=== PATIENT | female | born 1950 | race Caucasian/White ===

== ENCOUNTER 2018-12-12 07:41 | Inpatient (IN) ==
[2018-12-12] MEDS ORDERED: 0.9 % Sodium Chloride 1,000 ML ONE (07:56)
--- NOTE | 2018-12-12 08:12 | Emergency Department Note ---
Disposition Clinical Impression: Weakness Anemia Qualifiers: Anemia type: unspecified type Qualified Code(s): D64.9 - Anemia, unspecified Sepsis Qualifiers: Sepsis type: sepsis due to unspecified organism Qualified Code(s): A41.9 - Sepsis, unspecified organism Pneumonia Qualifiers: Pneumonia type: due to unspecified organism Laterality: unspecified laterality Lung location: unspecified part of lung Qualified Code(s): J18.9 - Pneumonia, unspecified organism Disposition: Admitted As Inpatient Condition: Fair Time of Disposition: 08:39 Weakness HPI - General Chief complaint: ED Weakness Stated complaint: General weakness, Flu A + Time Seen by Provider: 12/12/18 07:57 Source: patient, EMS Limitations: no limitations Nursing Notes Reviewed: Yes Vital Signs Reviewed: Yes - History of Present Illness HPI Narrative: 68-year-old female presents from home for evaluation of generalized weakness. This began 4 days ago and has progressively worsened. no falls. She was diagnosed with the flu yesterday. given azithromycin. Her daily 10mg prednisone was increased to 20mg PO Qday. She has been on prednisone "for a long time". She has a feeling of warmth, chills, loose stools, and a dry cough. PMH: per nursing update on chart ROS Pos: as above Neg: nausea, vomiting, chest pain, palpitations, dyspnea, abdominal pain. Pain Scale: 5 - Related Data Home Medications Medication Instructions Recorded Confirmed Alendronate Sodium [Fosamax] 70 mg PO SA 12/12/18 12/12/18 Benzonatate [Tessalon] 100 mg PO HS 12/12/18 12/12/18 Calcium Carbonate/Vitamin D3 1 tab PO DAILY 12/12/18 12/12/18 [Calcium 600 + Vit D Tablet] Carvedilol 12.5 mg PO BID 12/12/18 12/12/18 Fexofenadine/Pseudoephedrine 180 mg PO DAILY 12/12/18 12/12/18 [Radha-D 12 Hour Tablet] Furosemide [Lasix] 40 mg PO BID 12/12/18 12/12/18 Gabapentin 600 mg PO HS 12/12/18 12/12/18 Gabapentin [Neurontin] 100 mg PO DAILY 12/12/18 12/12/18 Multivit-Min/FA/Lycopen/Lutein 1 tab PO DAILY 12/12/18 12/12/18 [Centrum Silver Tablet] Mycophenolate Mofetil [Cellcept] 500 mg PO BID 12/12/18 12/12/18 Omeprazole [PriLOSEC] 40 mg PO BID 12/12/18 12/12/18 Ondansetron HCl [Zofran] 4 mg PO Q8H PRN 12/12/18 12/12/18 Potassium Chloride [K-Tab ER] 20 meq PO HS 12/12/18 12/12/18 Spironolactone [Aldactone] 100 mg PO DAILY 12/12/18 12/12/18 Vitamin E 400 unit PO DAILY 12/12/18 12/12/18 Warfarin [Coumadin] 2.5 mg PO QPM 12/12/18 12/12/18 metFORMIN [Glucophage] 500 mg PO BIDWM 12/12/18 12/12/18 predniSONE [PredniSONE] 10 mg PO DAILY 12/12/18 12/12/18 Allergies Allergy/AdvReac Type Severity Reaction Status Date / Time No Known Allergies Allergy Verified 12/12/18 07:49 All systems ED: reviewed and negative except as stated. Review of Systems: As Per HPI Past Medical History - Past Medical History Medical history: Reports: CHF, diabetes, GERD, other Psychiatric history: Reports: no psych history - Social History Smoking Status: Never smoker Smokeless Tobacco Status: No Alcohol use: Reports: none Drug use: Reports: none Physical Exam Vital Signs Reviewed General: Patient is alert, oriented, and in no acute distress. She appears tired Head: atraumatic, normocephalic Eye: normal appearance, PERRL, EOMI, no scleral icterus, no conjunctival injection ENT: mucous membranes dry, normal external ear exam Neck: normal inspection, trachea midline, full ROM Chest: normal inspection, symmetric chest rise Respiratory: Good respiratory effort. Bilateral breath sounds are diminished with faint crackles. No wheeze or rhonchi. Cardiovascular: Regular rate and rhythm. No clicks, rubs, gallops, or murmors. Normal heart sounds. BL radial pulses 2/4 and equal. Abdomen: Bowel sounds present normoactive. Abdomen is soft, nondistended, and n ontender. No guarding or rebound. No organomegaly noted. Musculoskeletal: Spontaneously moving all extremities. Skin: warm, dry, intact. Neuro: GCS 15. No focal neurologic deficits observed. Psych: Patient's affect is appropriate for situation. - General Limitations: no limitations General appearance: alert, in no apparent distress Course Course Narrative: SIRS (+) by temp and HR. Sepsis workup. 1L IVF at this time; SBP high 80's. Cautious fluid replenishment secondary to history of CHF. CXR unremarkable for acute findings per radiology read. XR hip secondary to hip pain unremarkable per radiology read. 11:00 Re-evaluating the patient. SBP in low 70's. Patient awake, alert, mentating appropriately. First 1L NS of nearly complete. I mixed push dose epi solution of 0.01mg epi per 1mL solution. Gave 0.01mg epinephrine slow peripheral push. BP improved to 108 systolic. Written consent for CVC. SBP dwindled back to low 70's. A second dose of 0.01mg epi slow peripheral push just prior to starting CVC procedure. Right IJ CVC placed. Norepinephrine drip titrate to MAP 60+. Empiric vancomycin and zosyn. 125 solumedrol as stress dose steroids. Total 2L IVF NS bolus. 11:31 Rapid flu pending; nursing notified. Tamiflu empirocally given as patient stated Flu A positive yesterday however no documentation in our chart/system. I discussed the above with the talent acquisition relationship manager, Dr. Wang. He agrees to accept the patient for continued evaluation monitoring within the ICU. Chest X-Ray 12/12/18 08:08 IMPRESSION: Bilateral perihilar infiltrates are likely chronic when correlated to a brazing machine tender 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 No acute osseous injury of the left hip. D/ / 12/12/2018 09:18:08 Guillaume Bates MD / anthony Interpreting Provider: Guillaume Bates MD Hip X-Ray 12/12/18 08:09 IMPRESSION: Bilateral perihilar infiltrates are likely chronic when correlated to a brazing machine tender 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 No acute osseous injury of the left hip. D/ / 12/12/2018 09:18:08 Guillaume Bates MD / anthony Interpreting Provider: Guillaume Bates MD Vital Signs Temperature 101.5 F H 12/12/18 07:49 Pulse Rate 118 12/12/18 07:49 Respiratory Rate 15 12/12/18 07:49 Blood Pressure 87/48 12/12/18 07:49 O2 Sat by Pulse Oximetry 96 12/12/18 07:49 Temperature 99.3 F 12/12/18 15:56 Pulse Rate 90 12/12/18 18:00 Respiratory Rate 21 12/12/18 18:00 Blood Pressure 105/64 12/12/18 18:00 O2 Sat by Pulse Oximetry 94 12/12/18 18:00 Oxygen Delivery Oxygen Delivery Nasal Cannula Weakness - Lab Data Result diagrams: 12/12/18 08:36 12/12/18 17:43 Lab Results 12/12/18 12/12/18 12/12/18 Range/Units 08:01 08:27 08:36 WBC 9.8 (4.3-11.1) K/mcL RBC 4.11 (3.82-4.97) M/mcL Hgb 10.5 L (11.5-15.4) g/dL Hct 33.3 L (35.3-44.9) % MCV 81.0 L (83.0-100.0) fL MCH 25.5 L (28.0-33.3) pg MCHC 31.5 L (31.6-35.5) g/dL RDW 15.7 H (11.5-14.5) % Plt Count 273 (140-400) K/mcL MPV 10.1 (9.4-12.4) fL Immature Gran % 1.5 (0-4) % Seg Neutrophils % 83.5 % Lymphocytes % 4.5 % Monocytes % 9.5 % Eosinophils % 0.4 % Basophils % 0.6 % Neutrophils # 8.2 (1.6-8.9) K/mcL Lymphocytes # 0.4 L (0.6-4.6) K/mcL Monocytes # 0.9 (0.0-1.3) K/mcL Eosinophils # 0.0 (0.0-0.6) K/mcL Basophils # 0.1 (0.0-0.2) K/mcL PT (9.4-12.1) Seconds INR APTT (26.0-36.0) Seconds Sodium (136-145) mEq/L Potassium (3.5-5.1) mEq/L Chloride (98-107) mEq/L Carbon Dioxide (23-29) mEq/L BUN (8-23) mg/dL Creatinine (0.60-1.20) mg/dL Est GFR ( Amer) (> 60) Est GFR (Non-Af Amer) (> 60) BUN/Creatinine Ratio (6-26) Glucose (70-105) mg/dL POC Glucose 149 H (70-99) mg/dL Calculated Osmolality (280-300) Lactic Acid 3.9 H (0.5-2.2) mmol/L Calcium (8.6-10.3) mg/dL Phosphorus (2.7-4.5) mg/dL Magnesium (1.6-2.6) mg/dL Total Bilirubin (0.3-1.0) mg/dL Direct Bilirubin (0.0-0.2) mg/dL Indirect Bilirubin (0.0-1.2) mg/dL AST (13-39) Units/L ALT (7-52) Units/L Alkaline Phosphatase (34-104) Units/L Troponin I (< 0.04) ng/mL B-Natriuretic Peptide (Less than 100) pg/mL Serum Total Protein (6.4-8.9) g/dL Albumin (3.5-5.7) g/dL Globulin (2.4-3.5) g/dL Albumin/Globulin Ratio (1.1-2.2) Random Cortisol mcg/dl Urine Color (Yellow) Urine Clarity (Clear) Urine pH (5.0-8.0) pH Units Ur Specific Haskell (1.010-1.025) Urine Protein (Neg-Trace) mg/dL Urine Glucose (UA) (Normal) mg/dL Urine Ketones (Negative) mg/dL Urine Blood (Negative) Urine Nitrite (Negative) Urine Bilirubin (Negative) Urine Urobilinogen (Normal) mg/dL Ur Leukocyte Esterase (Negative) Urine Microscopic RBC (0-3) per hpf Urine Microscopic WBC (0-3) per hpf Ur Squamous Epith Cells (None-Few) per lpf Urine Bacteria (None-Few) per hpf Hyaline Casts (None-Few) per lpf Ur Culture Indicated? (NO) 12/12/18 12/12/18 12/12/18 Range/Units 08:36 08:36 08:36 WBC (4.3-11.1) K/mcL RBC (3.82-4.97) M/mcL Hgb (11.5-15.4) g/dL Hct (35.3-44.9) % MCV (83.0-100.0) fL MCH (28.0-33.3) pg MCHC (31.6-35.5) g/dL RDW (11.5-14.5) % Plt Count (140-400) K/mcL MPV (9.4-12.4) fL Immature Gran % (0-4) % Seg Neutrophils % % Lymphocytes % % Monocytes % % Eosinophils % % Basophils % % Neutrophils # (1.6-8.9) K/mcL Lymphocytes # (0.6-4.6) K/mcL Monocytes # (0.0-1.3) K/mcL Eosinophils # (0.0-0.6) K/mcL Basophils # (0.0-0.2) K/mcL PT 31.4 H (9.4-12.1) Seconds INR 2.8 APTT 40.1 H (26.0-36.0) Seconds Sodium 129 L (136-145) mEq/L Potassium 4.1 (3.5-5.1) mEq/L Chloride 96 L (98-107) mEq/L Carbon Dioxide 23 (23-29) mEq/L BUN 14 (8-23) mg/dL Creatinine 1.17 (0.60-1.20) mg/dL Est GFR ( Amer) 56 L (> 60) Est GFR (Non-Af Amer) 46 L (> 60) BUN/Creatinine Ratio 12 (6-26) Glucose 121 H (70-105) mg/dL POC Glucose (70-99) mg/dL Calculated Osmolality 270 L (280-300) Lactic Acid (0.5-2.2) mmol/L Calcium 8.0 L (8.6-10.3) mg/dL Phosphorus 3.4 (2.7-4.5) mg/dL Magnesium 1.4 L (1.6-2.6) mg/dL Total Bilirubin 0.3 (0.3-1.0) mg/dL Direct Bilirubin 0.1 (0.0-0.2) mg/dL Indirect Bilirubin 0.2 (0.0-1.2) mg/dL AST 18 (13-39) Units/L ALT 8 (7-52) Units/L Alkaline Phosphatase 40 (34-104) Units/L Troponin I < 0.03 (< 0.04) ng/mL B-Natriuretic Peptide 106 H (Less than 100) pg/mL Serum Total Protein 6.2 L (6.4-8.9) g/dL Albumin 3.2 L (3.5-5.7) g/dL Globulin 3.0 (2.4-3.5) g/dL Albumin/Globulin Ratio 1.1 (1.1-2.2) Random Cortisol mcg/dl Urine Color (Yellow) Urine Clarity (Clear) Urine pH (5.0-8.0) pH Units Ur Specific Haskell (1.010-1.025) Urine Protein (Neg-Trace) mg/dL Urine Glucose (UA) (Normal) mg/dL Urine Ketones (Negative) mg/dL Urine Blood (Negative) Urine Nitrite (Negative) Urine Bilirubin (Negative) Urine Urobilinogen (Normal) mg/dL Ur Leukocyte Esterase (Negative) Urine Microscopic RBC (0-3) per hpf Urine Microscopic WBC (0-3) per hpf Ur Squamous Epith Cells (None-Few) per lpf Urine Bacteria (None-Few) per hpf Hyaline Casts (None-Few) per lpf Ur Culture Indicated? (NO) 12/12/18 12/12/18 12/12/18 Range/Units 12:06 12:06 14:21 WBC (4.3-11.1) K/mcL RBC (3.82-4.97) M/mcL Hgb (11.5-15.4) g/dL Hct (35.3-44.9) % MCV (83.0-100.0) fL MCH (28.0-33.3) pg MCHC (31.6-35.5) g/dL RDW (11.5-14.5) % Plt Count (140-400) K/mcL MPV (9.4-12.4) fL Immature Gran % (0-4) % Seg Neutrophils % % Lymphocytes % % Monocytes % % Eosinophils % % Basophils % % Neutrophils # (1.6-8.9) K/mcL Lymphocytes # (0.6-4.6) K/mcL Monocytes # (0.0-1.3) K/mcL Eosinophils # (0.0-0.6) K/mcL Basophils # (0.0-0.2) K/mcL PT (9.4-12.1) Seconds INR APTT (26.0-36.0) Seconds Sodium (136-145) mEq/L Potassium (3.5-5.1) mEq/L Chloride (98-107) mEq/L Carbon Dioxide (23-29) mEq/L BUN (8-23) mg/dL Creatinine (0.60-1.20) mg/dL Est GFR ( Amer) (> 60) Est GFR (Non-Af Amer) (> 60) BUN/Creatinine Ratio (6-26) Glucose (70-105) mg/dL POC Glucose (70-99) mg/dL Calculated Osmolality (280-300) Lactic Acid 1.0 (0.5-2.2) mmol/L Calcium (8.6-10.3) mg/dL Phosphorus (2.7-4.5) mg/dL Magnesium (1.6-2.6) mg/dL Total Bilirubin (0.3-1.0) mg/dL Direct Bilirubin (0.0-0.2) mg/dL Indirect Bilirubin (0.0-1.2) mg/dL AST (13-39) Units/L ALT (7-52) Units/L Alkaline Phosphatase (34-104) Units/L Troponin I (< 0.04) ng/mL B-Natriuretic Peptide (Less than 100) pg/mL Serum Total Protein (6.4-8.9) g/dL Albumin (3.5-5.7) g/dL Globulin (2.4-3.5) g/dL Albumin/Globulin Ratio (1.1-2.2) Random Cortisol 12.2 mcg/dl Urine Color Yellow (Yellow) Urine Clarity Clear (Clear) Urine pH 6.0 (5.0-8.0) pH Units Ur Specific Haskell 1.011 (1.010-1.025) Urine Protein Negative (Neg-Trace) mg/dL Urine Glucose (UA) Normal (Normal) mg/dL Urine Ketones Negative (Negative) mg/dL Urine Blood Negative (Negative) Urine Nitrite Negative (Negative) Urine Bilirubin Negative (Negative) Urine Urobilinogen Normal (Normal) mg/dL Ur Leukocyte Esterase Small H (Negative) Urine Microscopic RBC 0-3 (0-3) per hpf Urine Microscopic WBC 0-3 (0-3) per hpf Ur Squamous Epith Cells Few (None-Few) per lpf Urine Bacteria None Seen (None-Few) per hpf Hyaline Casts None Seen (None-Few) per lpf Ur Culture Indicated? YES A (NO) 12/12/18 12/12/18 Range/Units 16:15 17:43 WBC (4.3-11.1) K/mcL RBC (3.82-4.97) M/mcL Hgb (11.5-15.4) g/dL Hct (35.3-44.9) % MCV (83.0-100.0) fL MCH (28.0-33.3) pg MCHC (31.6-35.5) g/dL RDW (11.5-14.5) % Plt Count (140-400) K/mcL MPV (9.4-12.4) fL Immature Gran % (0-4) % Seg Neutrophils % % Lymphocytes % % Monocytes % % Eosinophils % % Basophils % % Neutrophils # (1.6-8.9) K/mcL Lymphocytes # (0.6-4.6) K/mcL Monocytes # (0.0-1.3) K/mcL Eosinophils # (0.0-0.6) K/mcL Basophils # (0.0-0.2) K/mcL PT (9.4-12.1) Seconds INR APTT (26.0-36.0) Seconds Sodium 132 L (136-145) mEq/L Potassium 3.7 (3.5-5.1) mEq/L Chloride 102 (98-107) mEq/L Carbon Dioxide 23 (23-29) mEq/L BUN 13 (8-23) mg/dL Creatinine 1.03 (0.60-1.20) mg/dL Est GFR ( Amer) > 60 (> 60) Est GFR (Non-Af Amer) 53 L (> 60) BUN/Creatinine Ratio 13 (6-26) Glucose 228 H (70-105) mg/dL POC Glucose 168 H (70-99) mg/dL Calculated Osmolality 281 (280-300) Lactic Acid (0.5-2.2) mmol/L Calcium 6.9 L (8.6-10.3) mg/dL Phosphorus (2.7-4.5) mg/dL Magnesium (1.6-2.6) mg/dL Total Bilirubin 0.2 L (0.3-1.0) mg/dL Direct Bilirubin (0.0-0.2) mg/dL Indirect Bilirubin (0.0-1.2) mg/dL AST 32 (13-39) Units/L ALT 13 (7-52) Units/L Alkaline Phosphatase 34 (34-104) Units/L Troponin I (< 0.04) ng/mL B-Natriuretic Peptide (Less than 100) pg/mL Serum Total Protein 5.4 L (6.4-8.9) g/dL Albumin 2.7 L (3.5-5.7) g/dL Globulin 2.7 (2.4-3.5) g/dL Albumin/Globulin Ratio 1.0 L (1.1-2.2) Random Cortisol mcg/dl Urine Color (Yellow) Urine Clarity (Clear) Urine pH (5.0-8.0) pH Units Ur Specific Haskell (1.010-1.025) Urine Protein (Neg-Trace) mg/dL Urine Glucose (UA) (Normal) mg/dL Urine Ketones (Negative) mg/dL Urine Blood (Negative) Urine Nitrite (Negative) Urine Bilirubin (Negative) Urine Urobilinogen (Normal) mg/dL Ur Leukocyte Esterase (Negative) Urine Microscopic RBC (0-3) per hpf Urine Microscopic WBC (0-3) per hpf Ur Squamous Epith Cells (None-Few) per lpf Urine Bacteria (None-Few) per hpf Hyaline Casts (None-Few) per lpf Ur Culture Indicated? (NO) Attestation Statement - Attestation Attestation: I, Akin Sherwood, examined this patient and my medical decision-making was reviewed with the LABORATORY DIRECTOR/PA/Advanced Practice Nurse/Resident Physician. I agree with the d ocumented findings, disposition and treatment plan as described except to the extent set forth below. 68-year-old female brought to the emergency department for further evaluation of weakness and fatigue. Patient states she had been diagnosed with influenza within the past few days. She states that she was started on azithromycin and prednisone by her primary care provider. Patient is febrile in the emergency department. She is hypotensive and tachycardic. She is given IV fluids for management of her blood pressure. She does have a history of congestive heart failure so we had to be careful with her resuscitation. Patient received a central line after discussion of risks and benefits and verbal and written consent obtained. I was present for the entire procedure. He was placed by the resident without complication. She was started on pressors. Patient will be admitted to the talent acquisition relationship manager for further care and evaluation
[2018-12-12] MEDS ORDERED: methylPREDNISolone 125 MG/2 ML VIAL IVP ONE (08:14)
[2018-12-12] MEDS ORDERED: 0.9 % Sodium Chloride 1,000 ML IVC ONE ×2 (08:28→10:38)
[2018-12-12 08:47] LABS: Basophils # 0.1 K/mcL (0.0-0.2); Basophils % 0.6 %; Eosinophils % 0.4 %; Hematocrit 33.3 % (35.3-44.9); Hemoglobin 10.5 g/dL (11.5-15.4); Immature Granulocytes % 1.5 % (0-4); Lymphocytes # 0.4 K/mcL (0.6-4.6); Lymphocytes % 4.5 %; Mean Corpuscular HGB Conc 31.5 g/dL (31.6-35.5); Mean Corpuscular Hemoglobin 25.5 pg (28.0-33.3); Mean Platelet Volume 10.1 fL (9.4-12.4); Monocytes # 0.9 K/mcL (0.0-1.3); Monocytes % 9.5 %; Neutrophils # 8.2 K/mcL (1.6-8.9); Platelet Count 273 K/mcL (140-400); Red Blood Count 4.11 M/mcL (3.82-4.97); Red Cell Distribution Width 15.7 % (11.5-14.5); Segmented Neutrophils % 83.5 %
[2018-12-12 08:55] LABS: INR 2.8; Prothrombin Time 31.4 Seconds (9.4-12.1)
[2018-12-12 08:58] LABS: Activated Partial Thrombo Time 40.1 Seconds (26.0-36.0)
[2018-12-12 09:04] LABS: Troponin I < 0.03 ng/mL (< 0.04)
[2018-12-12 09:05] LABS: Alanine Aminotransferase 8 Units/L (7-52); Albumin 3.2 g/dL (3.5-5.7); Albumin/Globulin Ratio 1.1 (1.1-2.2); Alkaline Phosphatase 40 Units/L (34-104); Aspartate Amino Transferase 18 Units/L (13-39); BUN/Creatinine Ratio 12 (6-26); Bilirubin,Direct 0.1 mg/dL (0.0-0.2); Bilirubin,Indirect 0.2 mg/dL (0.0-1.2); Bilirubin,Total 0.3 mg/dL (0.3-1.0); Blood Urea Nitrogen 14 mg/dL (8-23); Carbon Dioxide 23 mEq/L (23-29); Chloride 96 mEq/L (98-107); Glucose 121 mg/dL (70-105); Magnesium 1.4 mg/dL (1.6-2.6); Osmolality,Calculated 270 (280-300); Phosphorous 3.4 mg/dL (2.7-4.5); Potassium 4.1 mEq/L (3.5-5.1); Sodium 129 mEq/L (136-145); Total Protein 6.2 g/dL (6.4-8.9); eGFR For Non-African Americans 46 (> 60)
[2018-12-12] MEDS ORDERED: *HR* EPINEPHrine 1 MG/10 ML SYRINGE ONE (10:39)
[2018-12-12] MEDS ORDERED: Vancomycin 1,000 MG in D5% in Water 250 ML IVPB ONE (10:43)
[2018-12-12] MEDS ORDERED: Piperacillin/Tazobactam 3.375 GM in 0.9 % Sodium Chloride Mini Bag 100 ML IVPB ONE (10:43)
[2018-12-12] MEDS: Norepinephrine 4 MG in D5% in Water 250 ML IVC SCH ×2 (11:28→23:47)
[2018-12-12] MEDS ORDERED: Doxycycline 100 MG in 0.9 % Sodium Chloride Mini Bag 100 ML IVPB ONE (11:51)
[2018-12-12] MEDS ORDERED: 0.9 % Sodium Chloride 500 ML IVC ONE (11:52)
[2018-12-12 14:38] LABS: Bilirubin,Urine Negative (Negative); Blood,Urine Negative (Negative); Clarity,Urine Clear (Clear); Color,Urine Yellow (Yellow); Glucose,Urine (UA) Normal (Normal); Ketones,Urine Negative (Negative); Leukocyte Esterase,Urine Small (Negative); Nitrite,Urine Negative (Negative); Protein,Urine Negative (Neg-Trace); Specific Gravity,Urine 1.011 (1.010-1.025); Urobilinogen,Urine Normal (Normal)
[2018-12-12 14:42] LABS: Bacteria,Urine None Seen per hpf (None-Few); Hyaline Casts,Urine None Seen per lpf (None-Few); RBC,Urine 0-3 per hpf (0-3); Squamous Epithelial Cell,Urine Few per lpf (None-Few); WBC,Urine 0-3 per hpf (0-3)
--- NOTE | 2018-12-12 16:49 | Pulmonology Consult Note ---
<Obdulio Marin - Last Filed: 12/12/18 17:51> Date of Encounter: 12/12/18 Time of Encounter: 16:49 Assessment and Plan (1) Septic shock Current Visit: Yes Status: Acute This is a 68-year-old female with past medical history significant for CHF, diabetes mellitus, GERD, BOOP who initially presented to the ED for evaluation of generalized weakness. - Recently diagnosed with Influenza A - Woke up this AM and felt profoundly weak; fell two times - denies head trauma - On presentation in ED, + SIRS: T = 101.5, HR = 118, BP = 87/48 - Blood cultures, urine culture collected; total of 3.5 L IVF given - Pt continued to have low BPs; Right IJ central line placed - started on Levophed - Given doses of vanc, zosyn, Tamiflu doxycycline in ED - Random Cortisol = 12.2 PLAN: Patient presents with fever, hypotension, tachycardia recent diagnosis of influenza. Positive SIRS criteria, and meets criteria for septic shock. Rapid flu positive for influenza A, and UA suggestive of possible UTI. Patient received 2.5 L of IV fluids. Right IJ in place, and Levophed running. Given low normal random cortisol, may be component of adrenal insufficiency - Continue to monitor vitals; titrate to keep map greater than 65; wean the Levophed as tolerated - Monitor fevers and monitor for white count - Continue Tamiflu 75 mg twice a day - Continue Vanc/Zosyn for now - We will start hydrocortisone 50 mg by mouth every 6 hours - Continue supplemental oxygen as needed - BiPAP at night - Follow up blood cultures, urine cultures, sputum culture; adjust antibiotics as necessary (2) Influenza A Current Visit: Yes Status: Acute Plan as above - Rapid flu positive for influenza A - Continue Tamiflu 75 mg twice a day (3) Lupus anticoagulant disorder Current Visit: Yes Status: Acute PLAN: - Continue Coumadin; per pharmacy last dose was yesterday (4) BOOP (bronchiolitis obliterans with organizing pneumonia) Current Visit: Yes Status: Acute PLAN: - Treated with daily prednisone and CellCept - We will hold for now given patient's septic shock - Consider restarting with clinical improvement (5) CHF (congestive heart failure) Current Visit: Yes Status: Acute Patient notes history of CHF - However no previous records and on institution - Patient states that she follows at [facility] [place] - Home medications include spironolactone 100 mg by mouth daily and Lasix 40 mg by mouth twice a day, carvedilol 12.5 mg by mouth twice a day - CXR (12/12/18): Bilateral perihilar infiltrates are likely chronic when correlated to a tax revenue officer 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 - BNP = 106 PLAN: - We will hold diuretics for now given hypotension - Patient does not appear to be in acute CHF exacerbation Qualifiers: Heart failure chronicity: unspecified Qualified Code(s): I50.9 - Heart failure, unspecified (6) Diabetes mellitus Current Visit: Yes Status: Acute Continue sliding scale insulin Qualifiers: Diabetes mellitus type: type 2 Diabetes mellitus senior care insulin use: without senior care use Diabetes mellitus complication status: without complication Qualified Code(s): E11.9 - Type 2 diabetes mellitus without complications (7) GERD (gastroesophageal reflux disease) Current Visit: Yes Status: Acute PLAN: - Cont PPI Qualifiers: Esophagitis presence: without esophagitis Qualified Code(s): K21.9 - Gastro-esophageal reflux disease without esophagitis (8) DVT prophylaxis Current Visit: Yes Status: Acute Cont Coumadin History of Present Illness Consult date: 12/12/18 Requesting physician: Ricardo Teresa Reason for consult: other (Hypotension, Influenza) Chief complaint: Hypotension, Influenza History of present illness: This is a 68-year-old female with past medical history significant for CHF, diabetes mellitus, GERD, BOOP who initially presented to the ED for evaluation of generalized weakness. States that she has been sick for the past 3 days, and has progressively worsened. Associated with fevers/chills, cough occasionally productive of green sputum, fatigue, lethargy. Was diagnosed with influenza by her primary care physician and started on azithromycin and prednisone. Denies headache, upper respiratory symptoms, chest pain, worsening shortness of breath, abdominal pain, nausea, vomiting, diarrhea, dysuria. Patient is on daily prednisone 10 mg for chronic treatment of BOOP. Patient uses 3 L of oxygen at night when she sleeps and BiPAP, otherwise does not use oxygen during the day. Denies smoking history. However, states that she woke up early this morning, and felt profoundly weak, so much so that she needed her 's assistance just to walk to the bathroom. Notes she fell when in the bathroom, short distance off the toilet, and could not get up. Denies head trauma. has difficulty assisting her to get up and so EMS was called, and helped her back to chair. Patient again needed assistance to go to the bathroom, and again fell, and EMS was again called. At this point patient was brought to the ED. Upon presentation to the ED, initial temperature = 101.5, HR = 118, BP = 87/48. O2 sats appropriate on 2 L via nasal cannula. As patient was SIRS +, workup for sepsis done. Blood cultures, urinalysis and urine culture collected. Given isotonic IV fluids. Chest x-ray unremarkable for acute findings, an x-ray hip unremarkable as well. Patient continued to have low systolic blood pressures. Given doses of epi 0.01 mg, blood pressure improved to 108 systolic. Given the lability of blood pressures, CVC was placed and patient was started on Levophed. Also was given vancomycin and Zosyn, and given another liter of fluids. Rapid flu was positive for influenza A, and Tamiflu was given. UA positive leuk est - pending culture. Patient transferred to ICU for further management of hypertension and sepsis. Patient currently resting in bedside, no acute distress. Vitals hemodynamically stable, O2 saturations appropriate on 2 L O2 via nasal cannula. Blood pressures have been appropriate on 5 mcg/min Levophed. Past Med Surg Social Fam HX - Past Medical History Source: patient, old records reviewed Medical history: CHF, diabetes, GERD, other Additional medical history: lung disease, lupus Psychiatric history: no psych history - Past Surgical History Additional surgical history: lung biopsy, sinus, spinal fusion, - Social History Smoking Status: Never smoker Smokeless Tobacco Status: No Alcohol use: none Drug use: none Medications and Allergies Alendronate Sodium [Fosamax] 70 mg PO SA 12/12/18 [History] Benzonatate [Tessalon] 100 mg PO HS 12/12/18 [History] Calcium Carbonate/Vitamin D3 [Calcium 600 + Vit D Tablet] 1 tab PO DAILY 12/12/18 [History] Carvedilol 12.5 mg PO BID 12/12/18 [History] Fexofenadine/Pseudoephedrine [Radha-D 12 Hour Tablet] 180 mg PO DAILY 12/12/18 [History] Furosemide [Lasix] 40 mg PO BID 12/12/18 [History] Gabapentin 600 mg PO HS 12/12/18 [History] Gabapentin [Neurontin] 100 mg PO DAILY 12/12/18 [History] Multivit-Min/FA/Lycopen/Lutein [Centrum Silver Tablet] 1 tab PO DAILY 12/12/18 [History] Mycophenolate Mofetil [Cellcept] 500 mg PO BID 12/12/18 [History] Omeprazole [PriLOSEC] 40 mg PO BID 12/12/18 [History] Ondansetron HCl [Zofran] 4 mg PO Q8H PRN 12/12/18 [History] Potassium Chloride [K-Tab ER] 20 meq PO HS 12/12/18 [History] Spironolactone [Aldactone] 100 mg PO DAILY 12/12/18 [History] Vitamin E 400 unit PO DAILY 12/12/18 [History] Warfarin [Coumadin] 2.5 mg PO QPM 12/12/18 [History] metFORMIN [Glucophage] 500 mg PO BIDWM 12/12/18 [History] predniSONE [PredniSONE] 10 mg PO DAILY 12/12/18 [History] Allergy/AdvReac Type Severity Reaction Status Date / Time No Known Allergies Allergy Verified 12/12/18 07:49 All Systems: The remainder of the systems were reviewed and are negative - Constitutional Constitutional: chills, fatigue, fever(s), lethargy, weakness, no headache(s) - EENT Eyes: no loss of vision Ears: no decreased hearing Nose, mouth and throat: no dry mouth, no headache(s), no nasal congestion, no sore throat - Cardiovascular Cardiovascular: no chest pain, no dyspnea, no radiating jaw, neck or arm pain, no pedal edema - Respiratory Respiratory: cough, chest congestion, excessive phlegm production, change in phlegm color - Gastrointestinal Gastrointestinal: no abdominal pain, no diarrhea, no nausea, no vomiting - Genitourinary Genitourinary: no dysuria - Musculoskeletal Musculoskeletal: weakness - Integumentary Integumentary: no rash - Neurological Neurological: no confusion, no dizziness, no headache(s) - Endocrine Endocrine: fatigue Physical Examination Vital Signs: Vital Signs, Last 4 Hours Pulse Resp BP Pulse Ox 12/12/18 15:26 18 123/51 96 12/12/18 13:18 96 15 114/58 95 General appearance: no acute distress, alert Eyes: nonicteric ENT: oropharynx moist Neck: supple Effort: normal Auscultation: bilateral: rales (Coarse breath sounds bilaterally; no wheezes, crackles, rhonchi) Cardiovascular: regular rate and rhythm Gastrointestinal: normoactive bowel sounds, soft, non-tender, non-distended Integumentary: normal Extremities: edema (Mild 1+ pitting edema b/l lower extremities; mild tenderness to palpation) Results - Laboratory Findings CBC and BMP: 12/12/18 08:36 12/12/18 08:36 PT/INR, D-dimer PT 31.4 Seconds (9.4-12.1) H 12/12/18 08:36 Abnormal lab findings: Abnormal lab results Hgb 10.5 g/dL (11.5-15.4) L 12/12/18 08:36 Hct 33.3 % (35.3-44.9) L 12/12/18 08:36 MCV 81.0 fL (83.0-100.0) L 12/12/18 08:36 MCH 25.5 pg (28.0-33.3) L 12/12/18 08:36 MCHC 31.5 g/dL (31.6-35.5) L 12/12/18 08:36 RDW 15.7 % (11.5-14.5) H 12/12/18 08:36 Lymphocytes # 0.4 K/mcL (0.6-4.6) L 12/12/18 08:36 PT 31.4 Seconds (9.4-12.1) H 12/12/18 08:36 APTT 40.1 Seconds (26.0-36.0) H 12/12/18 08:36 Sodium 129 mEq/L (136-145) L 12/12/18 08:36 Chloride 96 mEq/L (98-107) L 12/12/18 08:36 Est GFR ( Amer) 56 (> 60) L 12/12/18 08:36 Est GFR (Non-Af Amer) 46 (> 60) L 12/12/18 08:36 Glucose 121 mg/dL (70-105) H 12/12/18 08:36 POC Glucose 168 mg/dL (70-99) H 12/12/18 16:15 Calculated Osmolality 270 (280-300) L 12/12/18 08:36 Calcium 8.0 mg/dL (8.6-10.3) L 12/12/18 08:36 Magnesium 1.4 mg/dL (1.6-2.6) L 12/12/18 08:36 B-Natriuretic Peptide 106 pg/mL (Less than 100) H 12/12/18 08:36 Serum Total Protein 6.2 g/dL (6.4-8.9) L 12/12/18 08:36 Albumin 3.2 g/dL (3.5-5.7) L 12/12/18 08:36 Ur Leukocyte Esterase Small (Negative) H 12/12/18 14:21 Ur Culture Indicated? YES (NO) A 12/12/18 14:21 - Microbiology Findings Microbiology Findings: Microbiology, Last 48 Hours 12/12/18 14:21 Urine Culture - Preliminary Urine,Clean Catch Culture is incubating. 12/12/18 11:38 Influenza Types A,B Antigen - Final Nasopharyngeal 12/12/18 08:29 Blood Culture - Preliminary Port System Culture is incubating and being continuously monitored for growth. Final report to follow. 12/12/18 08:39 Blood Culture - Preliminary Port System Culture is incubating and being continuously monitored for growth. Final report to follow. - Clinical Findings Intake & Output: Intake & Output 12/12/18 12/12/18 12/12/18 07:59 15:59 23:59 Intake Total 4009 / 4009 65 / 65 Balance 4009 / 4009 65 / 65 Weight 78.426 kg Consult Discharge Plan - Plan Referrals: Berta Cotto MD [Primary Care Provider] - <Jerry Lombardo - Last Filed: 12/12/18 20:41> Date of Encounter: 12/12/18 All Systems: The remainder of the systems were reviewed and are negative Physical Examination Vital Signs: Vital Signs, Last 4 Hours Temp Pulse Resp BP Pulse Ox 12/12/18 20:07 98.7 F 12/12/18 20:00 83 16 113/63 98 12/12/18 19:50 87 12/12/18 19:00 89 20 106/55 96 12/12/18 18:00 90 21 105/64 94 Results - Laboratory Findings CBC and BMP: 12/12/18 08:36 12/12/18 17:43 PT/INR, D-dimer PT 31.4 Seconds (9.4-12.1) H 12/12/18 08:36 Abnormal lab findings: Abnormal lab results Hgb 10.5 g/dL (11.5-15.4) L 12/12/18 08:36 Hct 33.3 % (35.3-44.9) L 12/12/18 08:36 MCV 81.0 fL (83.0-100.0) L 12/12/18 08:36 MCH 25.5 pg (28.0-33.3) L 12/12/18 08:36 MCHC 31.5 g/dL (31.6-35.5) L 12/12/18 08:36 RDW 15.7 % (11.5-14.5) H 12/12/18 08:36 Lymphocytes # 0.4 K/mcL (0.6-4.6) L 12/12/18 08:36 PT 31.4 Seconds (9.4-12.1) H 12/12/18 08:36 APTT 40.1 Seconds (26.0-36.0) H 12/12/18 08:36 Sodium 132 mEq/L (136-145) L 12/12/18 17:43 Est GFR (Non-Af Amer) 53 (> 60) L 12/12/18 17:43 Glucose 228 mg/dL (70-105) H 12/12/18 17:43 POC Glucose 205 mg/dL (70-99) H 12/12/18 19:16 Calcium 6.9 mg/dL (8.6-10.3) L 12/12/18 17:43 Venous Ioniz Calcium 1.02 mmol/L (1.15-1.35) L 12/12/18 19:15 Total Bilirubin 0.2 mg/dL (0.3-1.0) L 12/12/18 17:43 B-Natriuretic Peptide 106 pg/mL (Less than 100) H 12/12/18 08:36 Serum Total Protein 5.4 g/dL (6.4-8.9) L 12/12/18 17:43 Albumin 2.7 g/dL (3.5-5.7) L 12/12/18 17:43 Albumin/Globulin Ratio 1.0 (1.1-2.2) L 12/12/18 17:43 Ur Leukocyte Esterase Small (Negative) H 12/12/18 14:21 Ur Culture Indicated? YES (NO) A 12/12/18 14:21 - Microbiology Findings Microbiology Findings: Microbiology, Last 48 Hours 12/12/18 14:21 Urine Culture - Preliminary Urine,Clean Catch Culture is incubating. 12/12/18 11:38 Influenza Types A,B Antigen - Final Nasopharyngeal 12/12/18 08:29 Blood Culture - Preliminary Port System Culture is incubating and being continuously monitored for growth. Final report to follow. 12/12/18 08:39 Blood Culture - Preliminary Port System Culture is incubating and being continuously monitored for growth. Final report to follow. - Clinical Findings Intake & Output: Intake & Output 12/12/18 12/12/18 12/12/18 07:59 15:59 23:59 Intake Total 4009 / 4009 100.3 / 100.3 Output Total 1100 / 1100 Balance 4009 / 4009 -999.7 / -999.7 Weight 78.426 kg 77.5 kg - Attending Attestation I saw and evaluated this patient and my medical decision-making was reviewed with the Resident Physician. I agree with the documented findings, disposition a nd treatment plan as described except to the extent set forth below. We independently had [id number] contact with the patient I spent 40 minutes of Critical Care time with this patient. It involved decision making of high complexity to assess, manipulate, and support vital organ system failure and/or to prevent further life threatening deterioration of the patient's condition. The time involved in the performance of separately reportable procedures was not counted toward critical care time. Patient seen and examined at bedside Labs, radiology, chart personally reviewed. Management was reviewed during multidisciplinary critical care rounds. DIAGNOSTICS TECH: Patient is conscious oriented 3 no evidence of toxic/metabolic encephalopathy no focal neurological deficit. Pulm: Patient has acceptable oxygenation and ventilation developed influenza pneumonia and possible secondary bacterial pneumonia will cover with broad- spectrum antibiotics for now . Cards: Patient has septic shock complicated by related to adrenal insufficiency patient is on levo phed FEN-GI: Advance diet as tolerated. Renal: Labs and output reviewed ID: Probable source secondary bacterial pneumonia with probably after viral pneumonia Heme/Onc: Patient has history of lupus was on chronic prednisone therapy to continue stress dose steroids. Relative adrenal insufficiency. Endo: Glucose Monitored . Relative adrenal insufficiency Patient is on stress dose steroids Integ/MSK: Skin Care per routine ICU Nursing Protocol to prevent ulcers. Lines: All lines examined without evidence of infection : Dispo: Critically ill CODE:[id number]
[2018-12-12] MEDS ORDERED: Naloxone 0.4 MG/ML INJ IVP PRN (17:05)
[2018-12-12] MEDS: Hydrocortisone 10 MG TABLET PO SCH ×2 (17:29→23:45)
[2018-12-12] MEDS ORDERED: Dextrose Gel 15 GM/37.5 ML TUBE PO PRN ×2 (17:49)
[2018-12-12] MEDS ORDERED: Dextrose 4 GM Chewable Tablets PO PRN ×2 (17:49)
[2018-12-12] MEDS ORDERED: D5% in Water 1,000 ML IVC PRN (17:49)
[2018-12-12] MEDS ORDERED: *HR* Dextrose 50 % in Water (Syg) 50 ML SYRINGE IVP PRN (17:49)
[2018-12-12] MEDS ORDERED: Vancomycin (wt based) 1,000 MG VIAL IVPB SCH (18:00)
[2018-12-12] MEDS ORDERED: Warfarin perPT PO PRN (18:00)
[2018-12-12 18:14] LABS: Alanine Aminotransferase 13 Units/L (7-52); Albumin 2.7 g/dL (3.5-5.7); Alkaline Phosphatase 34 Units/L (34-104); Aspartate Amino Transferase 32 Units/L (13-39); BUN/Creatinine Ratio 13 (6-26); Bilirubin,Total 0.2 mg/dL (0.3-1.0); Blood Urea Nitrogen 13 mg/dL (8-23); Calcium 6.9 mg/dL (8.6-10.3); Carbon Dioxide 23 mEq/L (23-29); Chloride 102 mEq/L (98-107); Globulin 2.7 g/dL (2.4-3.5); Glucose 228 mg/dL (70-105); Osmolality,Calculated 281 (280-300); Potassium 3.7 mEq/L (3.5-5.1); Sodium 132 mEq/L (136-145); Total Protein 5.4 g/dL (6.4-8.9); eGFR For Non-African Americans 53 (> 60)
[2018-12-12] MEDS ORDERED: Acetaminophen 325 MG TABLET PO PRN (18:25)
[2018-12-12] MEDS ORDERED: *HR* Warfarin 3 MG TABLET PO ONE (18:30)
[2018-12-12] MEDS: Insulin LISPRO 300 UNITS/3 ML VIAL SQ SCH (18:50)
[2018-12-12 19:19] LABS: VBG Ionized Calcium 1.02 mmol/L (1.15-1.35)
[2018-12-12 19:36] LABS: Magnesium 1.6 mg/dL (1.6-2.6); Phosphorous 3.9 mg/dL (2.7-4.5)
[2018-12-12] MEDS: Oseltamivir Phosphate 30 MG CAPSULE PO SCH (21:10)
[2018-12-12] MEDS: Doxycycline 100 MG in 0.9 % Sodium Chloride Mini Bag 100 ML IVPB SCH (23:02)
[2018-12-12] MEDS: Piperacillin/Tazobactam 3.375 GM in 0.9 % Sodium Chloride Mini Bag 100 ML IVPB SCH (23:46)
[2018-12-13 04:19] LABS: Enterococcus by PCR Not Detected (Not Detect); Staphylococcus by PCR DETECTED (Not Detect)
[2018-12-13 04:20] LABS: Acinetobacter baumannii by PCR Not Detected (Not Detect); Candida albicans by PCR Not Detected (Not Detect); Candida glabrata by PCR Not Detected (Not Detect); Candida krusei by PCR Not Detected (Not Detect); Candida parapsilosis by PCR Not Detected (Not Detect); Candida tropicalis by PCR Not Detected (Not Detect); Enterobacter cloacae Cmplx PCR Not Detected (Not Detect); Enterobacteriaceae by PCR Not Detected (Not Detect); Escherichia coli by PCR Not Detected (Not Detect); Klebsiella oxytoca by PCR Not Detected (Not Detect); Klebsiella pneumoniae by PCR Not Detected (Not Detect); Proteus by PCR Not Detected (Not Detect); Pseudomonas aeruginosa by PCR Not Detected (Not Detect); Serratia marcescens by PCR Not Detected (Not Detect); Staphylococcus aureus by PCR Not Detected (Not Detect); Streptococcus agalactiae(B)PCR Not Detected (Not Detect); Streptococcus by PCR Not Detected (Not Detect); Streptococcus pneumoniae PCR Not Detected (Not Detect); Streptococcus pyogenes (A) PCR Not Detected (Not Detect)
[2018-12-13 04:22] LABS: Hematocrit 27.7 % (35.3-44.9); Lymphocytes # 0.6 K/mcL (0.6-4.6); Mean Corpuscular HGB Conc 30.3 g/dL (31.6-35.5); Mean Corpuscular Hemoglobin 24.9 pg (28.0-33.3); Mean Platelet Volume 8.5 fL (9.4-12.4); Monocytes # 0.7 K/mcL (0.0-1.3); Neutrophils # 3.8 K/mcL (1.6-8.9); Platelet Count 283 K/mcL (140-400); Red Blood Count 3.38 M/mcL (3.82-4.97); Red Cell Distribution Width 15.5 % (11.5-14.5)
[2018-12-13 04:26] LABS: Hemoglobin 8.4 g/dL (11.5-15.4)
[2018-12-13 04:32] LABS: INR 2.5; Prothrombin Time 27.9 Seconds (9.4-12.1)
[2018-12-13 04:39] LABS: Magnesium 2.3 mg/dL (1.6-2.6); Phosphorous 3.2 mg/dL (2.7-4.5)
[2018-12-13 05:34] LABS: BUN/Creatinine Ratio 14 (6-26); Blood Urea Nitrogen 9 mg/dL (8-23); Calcium 7.5 mg/dL (8.6-10.3); Carbon Dioxide 25 mEq/L (23-29); Chloride 104 mEq/L (98-107); Glucose 146 mg/dL (70-105); Osmolality,Calculated 283 (280-300); Potassium 3.8 mEq/L (3.5-5.1); Sodium 136 mEq/L (136-145); eGFR For Non-African Americans > 60 (> 60)
[2018-12-13] MEDS: Hydrocortisone 10 MG TABLET PO SCH ×4 (05:45→23:29)
--- NOTE | 2018-12-13 07:46 | Pulmonology Progress Note ---
<GalenravimohinderJerry S - Last Filed: 12/13/18 09:33> Date of Encounter: 12/13/18 Objective PUL Vital signs: Last Vital Signs Temp 98.7 F 12/13/18 07:35 Pulse 87 12/13/18 09:00 Resp 20 12/13/18 09:00 BP 102/51 12/13/18 09:00 Pulse Ox 99 12/13/18 09:00 Results - Laboratory Findings CBC and BMP: 12/13/18 04:03 12/13/18 04:03 PT/INR, D-dimer PT 27.9 Seconds (9.4-12.1) H 12/13/18 04:03 Abnormal lab findings: Abnormal lab results RBC 3.38 M/mcL (3.82-4.97) L 12/13/18 04:03 Hgb 8.4 g/dL (11.5-15.4) L D 12/13/18 04:03 Hct 27.7 % (35.3-44.9) L 12/13/18 04:03 MCV 82.0 fL (83.0-100.0) L 12/13/18 04:03 MCH 24.9 pg (28.0-33.3) L 12/13/18 04:03 MCHC 30.3 g/dL (31.6-35.5) L 12/13/18 04:03 RDW 15.5 % (11.5-14.5) H 12/13/18 04:03 MPV 8.5 fL (9.4-12.4) L 12/13/18 04:03 PT 27.9 Seconds (9.4-12.1) H 12/13/18 04:03 APTT 40.1 Seconds (26.0-36.0) H 12/12/18 08:36 Glucose 146 mg/dL (70-105) H 12/13/18 04:03 POC Glucose 110 mg/dL (70-99) H 12/13/18 07:24 Calcium 7.5 mg/dL (8.6-10.3) L 12/13/18 04:03 Venous Ioniz Calcium 1.02 mmol/L (1.15-1.35) L 12/12/18 19:15 Total Bilirubin 0.2 mg/dL (0.3-1.0) L 12/12/18 17:43 B-Natriuretic Peptide 106 pg/mL (Less than 100) H 12/12/18 08:36 Serum Total Protein 5.4 g/dL (6.4-8.9) L 12/12/18 17:43 Albumin 2.7 g/dL (3.5-5.7) L 12/12/18 17:43 Albumin/Globulin Ratio 1.0 (1.1-2.2) L 12/12/18 17:43 Ur Leukocyte Esterase Small (Negative) H 12/12/18 14:21 Ur Culture Indicated? YES (NO) A 12/12/18 14:21 Staphylococcus sp PCR DETECTED (Not Detect) A 12/12/18 08:29 - Microbiology Findings Microbiology Findings: Microbiology, Last 48 Hours 12/12/18 08:39 Blood Culture - Preliminary Port System Gram Positive Cocci 12/12/18 08:29 Blood Culture - Preliminary Port System Gram Positive Cocci 12/12/18 14:21 Urine Culture - Preliminary Urine,Clean Catch Culture is incubating. 12/12/18 11:38 Influenza Types A,B Antigen - Final Nasopharyngeal - Clinical Findings Intake & Output: Intake & Output 12/12/18 12/13/18 12/13/18 23:59 07:59 15:59 Intake Total 399.0 / 399.0 231.7 / 231.7 360 / 360 Output Total 1100 / 1100 1075 / 1075 Balance -701.0 / -701.0 -843.3 / -843.3 360 / 360 Weight 78.2 kg Consult Discharge Plan - Plan Referrals: Berta Cotto MD [Primary Care Provider] - - Attending Attestation - Attending Attestation I saw and evaluated this patient and my medical decision-making was reviewed with the Resident Physician. I agree with the documented findings, disposition and treatment plan as described except to the extent set forth below. We independently had [id number] contact with the patient Patient seen and examined at bedside Labs, radiology, chart personally reviewed. Management was reviewed during multidisciplinary critical care rounds. 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 Pulm: Patient has acceptable oxygenation and ventilation developed influenza pneumonia and possible secondary bacterial pneumonia will cover with broad- spectrum antibiotics for now . 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 Relative adrenal insufficiency.will continue hydrocortisone and then start tapering her Endo: Glucose Monitored . Relative adrenal insufficiency Patient is on stress dose steroids Integ/MSK: Skin Care per routine ICU Nursing Protocol to prevent ulcers. Lines: All lines examined without evidence of infection : Dispo: Critically ill CODE:[id number] <Sheldon Gutierrez - Last Filed: 12/13/18 10:05> Date of Encounter: 12/13/18 Time of Encounter: 07:31 Assessment and Plan (1) Septic shock Current Visit: Yes Status: Acute This is a 68-year-old female with past medical history significant for CHF, diabetes mellitus, GERD, BOOP who initially presented to the ED for evaluation of generalized weakness. - Recently diagnosed with Influenza A - Woke up this AM and felt profoundly weak; fell two times - denies head trauma - On presentation in ED, + SIRS: T = 101.5, HR = 118, BP = 87/48 - Blood cultures, urine culture collected; total of 3.5 L IVF given - Pt continued to have low BPs; Right IJ central line placed - started on Levophed - Given doses of vanc, zosyn, Tamiflu doxycycline in ED - Random Cortisol = 12.2 - vitals today T:99, P 86, RR 20, BP 103/60, SaO2 97% on 2L NC - Labs: - 12/12/18 2x Port blood culture shows gram positive cocci - staph species not Staph aureus. PLAN: Patient currently does not meet SIRS criteria for sepsis. Rapid flu positive for influenza A, and UA suggestive of possible UTI. Patient received 2.5 L of IV fluids. Right IJ in place, and Levophed running. Given low normal random cortisol, may be component of adrenal insufficiency - Continue to monitor vitals; titrate to keep map greater than 65; wean the Levophed as tolerated - Monitor fevers and monitor for white count - Continue Tamiflu 75 mg twice a day for 5 days total - Continue Vanc/Zosyn for now - We will start hydrocortisone 50 mg by mouth every 6 hours - Continue supplemental oxygen as needed - BiPAP at night - Repeat blood cultures from port and venipuncture ordered today. - Follow up blood cultures, urine cultures, sputum culture; adjust antibiotics as necessary (2) Influenza A Current Visit: Yes Status: Acute Plan as above - Rapid flu positive for influenza A - Continue Tamiflu 75 mg twice a day (3) Lupus anticoagulant disorder Current Visit: Yes Status: Acute - Continue Coumadin (4) BOOP (bronchiolitis obliterans with organizing pneumonia) Current Visit: Yes Status: Acute PLAN: - Treated with daily prednisone and CellCept - We will hold for now given patient's septic shock - Consider restarting with clinical improvement (5) CHF (congestive heart failure) Current Visit: Yes Status: Acute Patient notes history of CHF - However no previous records and on institution - Patient states that she follows at [facility] - Home medications include spironolactone 100 mg by mouth daily and Lasix 40 mg by mouth twice a day, carvedilol 12.5 mg by mouth twice a day - CXR (12/12/18): Bilateral perihilar infiltrates are likely chronic when correlated to a sanitation 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: w [facility] custodial use Diabetes mellitus complication status: without compl ication Qualified Code(s): E11.9 - Type 2 diabetes mellitus without compl ications (7) GERD (gastroesophageal reflux disease) Current Visit: Yes Status: Acute Cont PPI Qualifiers: Esophagitis presence: without esophagitis Qualified Code(s): K21.9 - Gastro-esophageal reflux disease without esophagitis (8) DVT prophylaxis Current Visit: Yes Status: Acute On coumadin Subjective Principal diagnosis: Influenza, hypotension, generalized weakness Interval history: Patient reports that she is comfortable and in NAD. States that she feels generalized malaise and pain in her lower ribs b/l when coughing. No chest pain that radiates to the shoulder, abdominal pain. No palpitations. Objective PUL Vital signs: Last Vital Signs Temp 99.0 F 12/13/18 03:37 Pulse 86 12/13/18 06:00 Resp 20 12/13/18 06:00 BP 103/60 12/13/18 06:00 Pulse Ox 97 12/13/18 06:00 General appearance: no acute distress, alert Eyes: nonicteric Neck: supple Effort: normal Auscultation: bilateral: clear, diminished breath sounds Results - Laboratory Findings CBC and BMP: 12/13/18 04:03 12/13/18 04:03 PT/INR, D-dimer PT 27.9 Seconds (9.4-12.1) H 12/13/18 04:03 Abnormal lab findings: Abnormal lab results RBC 3.38 M/mcL (3.82-4.97) L 12/13/18 04:03 Hgb 8.4 g/dL (11.5-15.4) L D 12/13/18 04:03 Hct 27.7 % (35.3-44.9) L 12/13/18 04:03 MCV 82.0 fL (83.0-100.0) L 12/13/18 04:03 MCH 24.9 pg (28.0-33.3) L 12/13/18 04:03 MCHC 30.3 g/dL (31.6-35.5) L 12/13/18 04:03 RDW 15.5 % (11.5-14.5) H 12/13/18 04:03 MPV 8.5 fL (9.4-12.4) L 12/13/18 04:03 PT 27.9 Seconds (9.4-12.1) H 12/13/18 04:03 APTT 40.1 Seconds (26.0-36.0) H 12/12/18 08:36 Glucose 146 mg/dL (70-105) H 12/13/18 04:03 POC Glucose 110 mg/dL (70-99) H 12/13/18 07:24 Calcium 7.5 mg/dL (8.6-10.3) L 12/13/18 04:03 Venous Ioniz Calcium 1.02 mmol/L (1.15-1.35) L 12/12/18 19:15 Total Bilirubin 0.2 mg/dL (0.3-1.0) L 12/12/18 17:43 B-Natriuretic Peptide 106 pg/mL (Less than 100) H 12/12/18 08:36 Serum Total Protein 5.4 g/dL (6.4-8.9) L 12/12/18 17:43 Albumin 2.7 g/dL (3.5-5.7) L 12/12/18 17:43 Albumin/Globulin Ratio 1.0 (1.1-2.2) L 12/12/18 17:43 Ur Leukocyte Esterase Small (Negative) H 12/12/18 14:21 Ur Culture Indicated? YES (NO) A 12/12/18 14:21 Staphylococcus sp PCR DETECTED (Not Detect) A 12/12/18 08:29 - Microbiology Findings Microbiology Findings: Microbiology, Last 48 Hours 12/12/18 08:39 Blood Culture - Preliminary Port System Gram Positive Cocci 12/12/18 08:29 Blood Culture - Preliminary Port System Gram Positive Cocci 12/12/18 14:21 Urine Culture - Preliminary Urine,Clean Catch Culture is incubating. 12/12/18 11:38 Influenza Types A,B Antigen - Final Nasopharyngeal - Clinical Findings Intake & Output: Intake & Output 12/12/18 12/12/18 12/13/18 15:59 23:59 07:59 Intake Total 4009 / 4009 399.0 / 399.0 231.7 / 231.7 Output Total 1100 / 1100 750 / 750 Balance 4009 / 4009 -701.0 / -701.0 -518.3 / -518.3 Weight 77.5 kg 78.2 kg
[2018-12-13] MEDS: Insulin LISPRO 300 UNITS/3 ML VIAL SQ SCH ×3 (07:51→16:02)
[2018-12-13] MEDS: Oseltamivir Phosphate 30 MG CAPSULE PO SCH ×2 (07:59→22:11)
[2018-12-13] MEDS: Piperacillin/Tazobactam 3.375 GM in 0.9 % Sodium Chloride Mini Bag 100 ML IVPB SCH ×3 (07:59→23:30)
--- NOTE | 2018-12-13 10:00 | Electrocardiograph Report ---
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
[2018-12-13] MEDS: Doxycycline 100 MG in 0.9 % Sodium Chloride Mini Bag 100 ML IVPB SCH ×2 (11:47→22:11)
[2018-12-13] MEDS: Potassium Chloride 40 MEQ/200 ML BAG IVPB PRN ×2 (17:58→20:00)
[2018-12-13] MEDS ORDERED: *HR* Warfarin 2.5 MG TABLET PO ONE (18:00)
[2018-12-14] MEDS ORDERED: GuaiFENesin Liq 200 MG/10 ML UDC PO PRN ×2 (01:29→17:56)
[2018-12-14 04:09] LABS: Hematocrit 27.3 % (35.3-44.9); Hemoglobin 8.2 g/dL (11.5-15.4); Immature Granulocytes % 1.2 % (0-4); Lymphocytes # 0.7 K/mcL (0.6-4.6); Lymphocytes % 19.5 %; Mean Corpuscular Hemoglobin 24.9 pg (28.0-33.3); Monocytes # 0.5 K/mcL (0.0-1.3); Neutrophils # 2.1 K/mcL (1.6-8.9); Platelet Count 287 K/mcL (140-400); Red Blood Count 3.29 M/mcL (3.82-4.97); Red Cell Distribution Width 15.8 % (11.5-14.5); Segmented Neutrophils % 63.3 %
[2018-12-14 04:11] LABS: Prothrombin Time 34.4 Seconds (9.4-12.1)
[2018-12-14 04:27] LABS: BUN/Creatinine Ratio 10 (6-26); Blood Urea Nitrogen 5 mg/dL (8-23); Calcium 7.7 mg/dL (8.6-10.3); Carbon Dioxide 22 mEq/L (23-29); Chloride 110 mEq/L (98-107); Glucose 117 mg/dL (70-105); Magnesium 2.1 mg/dL (1.6-2.6); Osmolality,Calculated 288 (280-300); Potassium 3.9 mEq/L (3.5-5.1); Sodium 140 mEq/L (136-145); eGFR For Non-African Americans > 60 (> 60)
[2018-12-14] MEDS ORDERED: Desitin (Zinc Oxide) 56 GM TUBE TP PRN ×2 (04:33→17:56)
[2018-12-14] MEDS: Hydrocortisone 10 MG TABLET PO SCH ×4 (05:54→22:56)
[2018-12-14] MEDS: Piperacillin/Tazobactam 3.375 GM in 0.9 % Sodium Chloride Mini Bag 100 ML IVPB SCH ×3 (07:40→22:56)
[2018-12-14] MEDS: Oseltamivir Phosphate 30 MG CAPSULE PO SCH ×2 (07:40→20:00)
[2018-12-14] MEDS: Insulin LISPRO 300 UNITS/3 ML VIAL SQ SCH ×3 (07:45→17:23)
--- NOTE | 2018-12-14 09:12 | Pulmonology Progress Note ---
<Sheldon Gutierrez - Last Filed: 12/14/18 11:05> Date of Encounter: 12/14/18 Time of Encounter: 09:10 Assessment and Plan (1) Septic shock Current Visit: Yes Status: Acute This is a 68-year-old female with past medical history significant for CHF, diabetes mellitus, GERD, BOOP who initially presented to the ED for evaluation of generalized weakness. - Recently diagnosed with Influenza A - Woke up this AM and felt profoundly weak; fell two times - denies head trauma - On presentation in ED, + SIRS: T = 101.5, HR = 118, BP = 87/48 - Blood cultures, urine culture collected; total of 3.5 L IVF given - Pt continued to have low BPs; Right IJ central line placed - started on Levophed - Given doses of vanc, zosyn, Tamiflu doxycycline in ED - Random Cortisol = 12.2 - Labs: - 12/12/18 2x Port blood culture shows gram positive cocci - staph species not Staph aureus. - 12/12/18 Urine culture no growth - 12/13/18 blood cultures from port and venipuncture ordered today. - Currently does not need pressor support - has BP 129/64 PLAN: Patient currently does not meet SIRS criteria for sepsis. Rapid flu positive for influenza A, and UA suggestive of possible UTI. Patient received 2.5 L of IV fluids. Right IJ in place, and Levophed running. Given low normal random cortisol, may be component of adrenal insufficiency - Continue to monitor vitals; Central access maintained in case patient decompensates, possibly remove tomorrow. Levophed order still in, titrate to keep map greater than 65; wean the Levophed as tolerated - Monitor fevers and monitor for white count - Continue Tamiflu 75 mg twice a day for 5 days total - Continue Vanc/Zosyn for now - Continue hydrocortisone 50 mg by mouth every 6 hours - Continue supplemental oxygen as needed - BiPAP at night - Follow up blood cultures, urine cultures, sputum culture; adjust antibiotics as necessary - I/D Consult for recs about positive port culture (w/o periph cultures drawn) and follow up port and periph cultures post ABX. (2) Influenza A Current Visit: Yes Status: Acute Plan as above - Rapid flu positive for influenza A - Continue Tamiflu 75 mg twice a day (3) Lupus anticoagulant disorder Current Visit: Yes Status: Acute - Continue Coumadin (4) BOOP (bronchiolitis obliterans with organizing pneumonia) Current Visit: Yes Status: Acute PLAN: - Treated with daily prednisone and CellCept - We will hold for now given patient's septic shock - Consider restarting with clinical improvement (5) CHF (congestive heart failure) Current Visit: Yes Status: Acute Patient notes history of CHF - However no previous records and on institution - Patient states that she follows at [facility] - Home medications include spironolactone 100 mg by mouth daily and Lasix 40 mg by mouth twice a day, carvedilol 12.5 mg by mouth twice a day - CXR (12/12/18): Bilateral perihilar infiltrates are likely chronic when correlated to a 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: without intermediate school teacher use Diabetes mellitus complication status: without complication Qualified Code(s): E11.9 - Type 2 diabetes mellitus without complications (7) GERD (gastroesophageal reflux disease) Current Visit: Yes Status: Acute Cont PPI Qualifiers: Esophagitis presence: without esophagitis Qualified Code(s): K21.9 - Gastro-esophageal reflux disease without esophagitis (8) DVT prophylaxis Current Visit: Yes Status: Acute On coumadin Subjective Principal diagnosis: Influenza, hypotension, generalized weakness Interval history: Patient reports that she is comfortable and in NAD. States that she feels generalized malaise and pain in her lower ribs b/l when coughing. No chest pain that radiates to the shoulder, abdominal pain. No palpitations. Wondering when she can have central access removed. Objective PUL Vital signs: Last Vital Signs Temp 98.4 F 12/14/18 07:00 Pulse 93 12/14/18 07:00 Resp 18 12/14/18 07:00 BP 129/64 12/14/18 07:00 Pulse Ox 95 12/14/18 07:00 General appearance: no acute distress, appears uncomfortable Eyes: nonicteric Neck: supple Effort: normal Auscultation: right: clear Cardiovascular: regular rate and rhythm Gastrointestinal: normoactive bowel sounds, soft, non-tender Extremities: pink and warm, pulses normal Musculoskeletal: no deformities normal mental status mood appropriate Results - Laboratory Findings CBC and BMP: 12/14/18 03:45 12/14/18 03:45 PT/INR, D-dimer PT 34.4 Seconds (9.4-12.1) H 12/14/18 03:45 Abnormal lab findings: Abnormal lab results WBC 3.4 K/mcL (4.3-11.1) L 12/14/18 03:45 RBC 3.29 M/mcL (3.82-4.97) L 12/14/18 03:45 Hgb 8.2 g/dL (11.5-15.4) L 12/14/18 03:45 Hct 27.3 % (35.3-44.9) L 12/14/18 03:45 MCH 24.9 pg (28.0-33.3) L 12/14/18 03:45 MCHC 30.0 g/dL (31.6-35.5) L 12/14/18 03:45 RDW 15.8 % (11.5-14.5) H 12/14/18 03:45 MPV 9.0 fL (9.4-12.4) L 12/14/18 03:45 PT 34.4 Seconds (9.4-12.1) H 12/14/18 03:45 APTT 40.1 Seconds (26.0-36.0) H 12/12/18 08:36 Chloride 110 mEq/L (98-107) H 12/14/18 03:45 Carbon Dioxide 22 mEq/L (23-29) L 12/14/18 03:45 BUN 5 mg/dL (8-23) L 12/14/18 03:45 Creatinine 0.49 mg/dL (0.60-1.20) L 12/14/18 03:45 Glucose 117 mg/dL (70-105) H 12/14/18 03:45 POC Glucose 105 mg/dL (70-99) H 12/14/18 07:41 Calcium 7.7 mg/dL (8.6-10.3) L 12/14/18 03:45 Venous Ioniz Calcium 1.02 mmol/L (1.15-1.35) L 12/12/18 19:15 Phosphorus 2.2 mg/dL (2.7-4.5) L 12/14/18 03:12 Total Bilirubin 0.2 mg/dL (0.3-1.0) L 12/12/18 17:43 B-Natriuretic Peptide 106 pg/mL (Less than 100) H 12/12/18 08:36 Serum Total Protein 5.4 g/dL (6.4-8.9) L 12/12/18 17:43 Albumin 2.7 g/dL (3.5-5.7) L 12/12/18 17:43 Albumin/Globulin Ratio 1.0 (1.1-2.2) L 12/12/18 17:43 Ur Leukocyte Esterase Small (Negative) H 12/12/18 14:21 Ur Culture Indicated? YES (NO) A 12/12/18 14:21 Staphylococcus sp PCR DETECTED (Not Detect) A 12/12/18 08:29 - Microbiology Findings Microbiology Findings: Microbiology, Last 48 Hours 12/12/18 08:39 Blood Culture - Preliminary Port System Gram Positive Cocci 12/12/18 08:29 Blood Culture - Preliminary Port System Gram Positive Cocci 12/12/18 14:21 Urine Culture - Final Urine,Clean Catch No significant growth. 12/13/18 10:49 Blood Culture - Preliminary Port System Culture is incubating and being continuously monitored for growth. Final report to follow. 12/13/18 10:39 Blood Culture - Preliminary Peripheral Venipuncture Culture is incubating and being continuously monitored for growth. Final report to follow. 12/13/18 10:39 Blood Culture - Preliminary Peripheral Venipuncture Culture is incubating and being continuously monitored for growth. Final report to follow. 12/12/18 11:38 Influenza Types A,B Antigen - Final Nasopharyngeal - Clinical Findings Intake & Output: Intake & Output 12/13/18 12/14/18 12/14/18 23:59 07:59 15:59 Intake Total 600 / 600 100 / 100 Output Total 800 / 800 1150 / 1150 Balance -200 / -200 -1050 / -1050 Weight 76.8 kg Consult Discharge Plan - Plan Referrals: Berta Cotto MD [Primary Care Provider] - <Jerry Lombardo S - Last Filed: 12/14/18 21:14> Date of Encounter: 12/14/18 Objective PUL Vital signs: Last Vital Signs Temp 98.8 F 12/14/18 20:09 Pulse 107 12/14/18 20:00 Resp 18 12/14/18 20:00 BP 137/67 12/14/18 20:00 Pulse Ox 98 12/14/18 20:00 Results - Laboratory Findings CBC and BMP: 12/14/18 03:45 12/14/18 03:45 PT/INR, D-dimer PT 34.4 Seconds (9.4-12.1) H 12/14/18 03:45 Abnormal lab findings: Abnormal lab results WBC 3.4 K/mcL (4.3-11.1) L 12/14/18 03:45 RBC 3.29 M/mcL (3.82-4.97) L 12/14/18 03:45 Hgb 8.2 g/dL (11.5-15.4) L 12/14/18 03:45 Hct 27.3 % (35.3-44.9) L 12/14/18 03:45 MCH 24.9 pg (28.0-33.3) L 12/14/18 03:45 MCHC 30.0 g/dL (31.6-35.5) L 12/14/18 03:45 RDW 15.8 % (11.5-14.5) H 12/14/18 03:45 MPV 9.0 fL (9.4-12.4) L 12/14/18 03:45 PT 34.4 Seconds (9.4-12.1) H 12/14/18 03:45 APTT 40.1 Seconds (26.0-36.0) H 12/12/18 08:36 Chloride 110 mEq/L (98-107) H 12/14/18 03:45 Carbon Dioxide 22 mEq/L (23-29) L 12/14/18 03:45 BUN 5 mg/dL (8-23) L 12/14/18 03:45 Creatinine 0.49 mg/dL (0.60-1.20) L 12/14/18 03:45 Glucose 117 mg/dL (70-105) H 12/14/18 03:45 POC Glucose 137 mg/dL (70-99) H 12/14/18 18:57 Calcium 7.7 mg/dL (8.6-10.3) L 12/14/18 03:45 Venous Ioniz Calcium 1.02 mmol/L (1.15-1.35) L 12/12/18 19:15 Phosphorus 2.2 mg/dL (2.7-4.5) L 12/14/18 03:12 Total Bilirubin 0.2 mg/dL (0.3-1.0) L 12/12/18 17:43 B-Natriuretic Peptide 106 pg/mL (Less than 100) H 12/12/18 08:36 Serum Total Protein 5.4 g/dL (6.4-8.9) L 12/12/18 17:43 Albumin 2.7 g/dL (3.5-5.7) L 12/12/18 17:43 Albumin/Globulin Ratio 1.0 (1.1-2.2) L 12/12/18 17:43 Ur Leukocyte Esterase Small (Negative) H 12/12/18 14:21 Ur Culture Indicated? YES (NO) A 12/12/18 14:21 Staphylococcus sp PCR DETECTED (Not Detect) A 12/12/18 08:29 - Microbiology Findings Microbiology Findings: Microbiology, Last 48 Hours 12/12/18 08:39 Blood Culture - Preliminary Port System Gram Positive Cocci 12/12/18 08:29 Blood Culture - Preliminary Port System Gram Positive Cocci 12/12/18 14:21 Urine Culture - Final Urine,Clean Catch No significant growth. 12/13/18 10:49 Blood Culture - Preliminary Port System Culture is incubating and being continuously monitored for growth. Final report to follow. 12/13/18 10:39 Blood Culture - Preliminary Peripheral Venipuncture Culture is incubating and being continuously monitored for growth. Final report to follow. 12/13/18 10:39 Blood Culture - Preliminary Peripheral Venipuncture Culture is incubating and being continuously monitored for growth. Final report to follow. - Clinical Findings Intake & Output: Intake & Output 12/14/18 12/14/18 12/14/18 07:59 15:59 23:59 Intake Total 100 / 100 450 / 450 100 / 100 Output Total 1150 / 1150 325 / 325 550 / 550 Balance -1050 / -1050 125 / 125 -450 / -450 Weight 76.8 kg - Attending Attestation - Attending Attestation I saw and evaluated this patient and my medical decision-making was reviewed with the Resident Physician. I agree with the documented findings, disposition and treatment plan as described except to the extent set forth below. We independently had [id number] contact with the patient Patient seen and examined at bedside Labs, radiology, chart personally reviewed. Management was reviewed during multidisciplinary critical care rounds. 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 Pulm: Patient has acceptable oxygenation and ventilation developed influenza pneumonia and possible secondary bacterial pneumonia will cover with broad- spectrum antibiotics for now . Patient in the imaging has some chronic interstitial changes most likely due to past history of COPD 11/13 will descalate antibiotics according to response Cards: Patient has septic shock complicated by related to adrenal insufficiency patient was on levo phed 11/13 Patient is hemodynamically stable off Levophed FEN-GI: Advance diet as tolerated. 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 Relative adrenal insufficiency.will continue hydrocortisone and then start tapering her to prednisone Endo: Glucose Monitored . Relative adrenal insufficiency Patient is on stress dose steroids Integ/MSK: Skin Care per routine ICU Nursing Protocol to prevent ulcers. Lines: All lines examined without evidence of infection : Dispo: Can be transferred to
[2018-12-14] MEDS: Norepinephrine 4 MG in D5% in Water 250 ML IVC SCH (11:41)
[2018-12-14] MEDS: Doxycycline 100 MG in 0.9 % Sodium Chloride Mini Bag 100 ML IVPB SCH ×2 (11:51→22:57)
[2018-12-14] MEDS ORDERED: Naloxone 0.4 MG/ML INJ IVP PRN (17:56)
[2018-12-14] MEDS ORDERED: *HR* Dextrose 50 % in Water (Syg) 50 ML SYRINGE IVP PRN (17:56)
[2018-12-14] MEDS ORDERED: Warfarin perPT PO PRN (17:56)
[2018-12-14] MEDS ORDERED: Dextrose Gel 15 GM/37.5 ML TUBE PO PRN ×2 (17:56)
[2018-12-14] MEDS ORDERED: D5% in Water 1,000 ML IVC PRN (17:56)
[2018-12-14] MEDS ORDERED: Dextrose 4 GM Chewable Tablets PO PRN ×2 (17:56)
[2018-12-14] MEDS ORDERED: Acetaminophen 325 MG TABLET PO PRN (17:56)
[2018-12-14] MEDS ORDERED: *HR* Warfarin 1 MG TABLET PO ONE ×2 (18:00)
[2018-12-15 04:05] LABS: Hematocrit 26.8 % (35.3-44.9); Hemoglobin 8.1 g/dL (11.5-15.4); Immature Granulocytes % 1.1 % (0-4); Lymphocytes # 0.9 K/mcL (0.6-4.6); Lymphocytes % 32.1 %; Mean Corpuscular HGB Conc 30.2 g/dL (31.6-35.5); Mean Corpuscular Hemoglobin 25.2 pg (28.0-33.3); Mean Corpuscular Volume 83.2 fL (83.0-100.0); Mean Platelet Volume 8.8 fL (9.4-12.4); Monocytes # 0.4 K/mcL (0.0-1.3); Monocytes % 13.8 %; Neutrophils # 1.4 K/mcL (1.6-8.9); Platelet Count 252 K/mcL (140-400); Red Blood Count 3.22 M/mcL (3.82-4.97)
[2018-12-15 04:12] LABS: INR 3.3; Prothrombin Time 37.2 Seconds (9.4-12.1)
[2018-12-15 04:23] LABS: BUN/Creatinine Ratio 11 (6-26); Blood Urea Nitrogen 5 mg/dL (8-23); Calcium 7.5 mg/dL (8.6-10.3); Carbon Dioxide 23 mEq/L (23-29); Chloride 112 mEq/L (98-107); Glucose 125 mg/dL (70-105); Osmolality,Calculated 293 (280-300); Potassium 3.3 mEq/L (3.5-5.1); Sodium 142 mEq/L (136-145); eGFR For Non-African Americans > 60 (> 60)
[2018-12-15] MEDS: Hydrocortisone 10 MG TABLET PO SCH (05:26)
[2018-12-15] MEDS ORDERED: Aminoglycoside Consult 1 EACH MC ONE (07:15)
--- NOTE | 2018-12-15 07:24 | Pulmonology Progress Note ---
<TashaKamnick M - Last Filed: 12/15/18 10:36> Date of Encounter: 12/15/18 Objective PUL Vital signs: Last Vital Signs Temp 98.8 F 12/15/18 09:12 Pulse 98 12/15/18 09:00 Resp 20 12/15/18 09:00 BP 136/118 12/15/18 09:00 Pulse Ox 98 12/15/18 09:00 Results - Laboratory Findings CBC and BMP: 12/15/18 03:55 12/15/18 03:55 PT/INR, D-dimer PT 37.2 Seconds (9.4-12.1) H 12/15/18 03:55 Abnormal lab findings: Abnormal lab results WBC 2.7 K/mcL (4.3-11.1) L 12/15/18 03:55 RBC 3.22 M/mcL (3.82-4.97) L 12/15/18 03:55 Hgb 8.1 g/dL (11.5-15.4) L 12/15/18 03:55 Hct 26.8 % (35.3-44.9) L 12/15/18 03:55 MCH 25.2 pg (28.0-33.3) L 12/15/18 03:55 MCHC 30.2 g/dL (31.6-35.5) L 12/15/18 03:55 RDW 16.0 % (11.5-14.5) H 12/15/18 03:55 MPV 8.8 fL (9.4-12.4) L 12/15/18 03:55 Neutrophils # 1.4 K/mcL (1.6-8.9) L 12/15/18 03:55 PT 37.2 Seconds (9.4-12.1) H 12/15/18 03:55 APTT 40.1 Seconds (26.0-36.0) H 12/12/18 08:36 Potassium 3.3 mEq/L (3.5-5.1) L 12/15/18 03:55 Chloride 112 mEq/L (98-107) H 12/15/18 03:55 BUN 5 mg/dL (8-23) L 12/15/18 03:55 Creatinine 0.46 mg/dL (0.60-1.20) L 12/15/18 03:55 Glucose 125 mg/dL (70-105) H 12/15/18 03:55 POC Glucose 109 mg/dL (70-99) H 12/15/18 08:23 Calcium 7.5 mg/dL (8.6-10.3) L 12/15/18 03:55 Venous Ioniz Calcium 1.02 mmol/L (1.15-1.35) L 12/12/18 19:15 Phosphorus 2.2 mg/dL (2.7-4.5) L 12/14/18 03:12 Total Bilirubin 0.2 mg/dL (0.3-1.0) L 12/12/18 17:43 B-Natriuretic Peptide 106 pg/mL (Less than 100) H 12/12/18 08:36 Serum Total Protein 5.4 g/dL (6.4-8.9) L 12/12/18 17:43 Albumin 2.7 g/dL (3.5-5.7) L 12/12/18 17:43 Albumin/Globulin Ratio 1.0 (1.1-2.2) L 12/12/18 17:43 Ur Leukocyte Esterase Small (Negative) H 12/12/18 14:21 Ur Culture Indicated? YES (NO) A 12/12/18 14:21 Staphylococcus sp PCR DETECTED (Not Detect) A 12/12/18 08:29 - Microbiology Findings Microbiology Findings: Microbiology, Last 48 Hours 12/12/18 08:39 Blood Culture - Preliminary Port System Gram Positive Cocci 12/12/18 08:29 Blood Culture - Preliminary Port System Gram Positive Cocci 12/12/18 14:21 Urine Culture - Final Urine,Clean Catch No significant growth. 12/13/18 10:49 Blood Culture - Preliminary Port System Culture is incubating and being continuously monitored for growth. Final report to follow. 12/13/18 10:39 Blood Culture - Preliminary Peripheral Venipuncture Culture is incubating and being continuously monitored for growth. Final report to follow. 12/13/18 10:39 Blood Culture - Preliminary Peripheral Venipuncture Culture is incubating and being continuously monitored for growth. Final report to follow. - Clinical Findings Intake & Output: Intake & Output 12/14/18 12/15/18 12/15/18 23:59 07:59 15:59 Intake Total 200 / 200 350 / 350 Output Total 550 / 550 600 / 600 475 / 475 Balance -350 / -350 -250 / -250 -475 / -475 Weight 76.8 kg Consult Discharge Plan - Plan Referrals: Berta Cotto MD [Primary Care Provider] - - Attending Attestation I examined this patient and my medical decision-making was reviewed with the Resident Physician. I agree with the documented findings, disposition and treatment plan as described except to the extent set forth below. Patient seen and examined. Labs, radiology, chart personally reviewed. 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 ID is following up. Hold immune suppressant medication for now Renal; urine out put and renal funtion reviewed Endorcine: blood glucose is monitored. Change steroid to prednisone. Lines: all lines checked and no evidence of infections. Remove her central line Skin: skin care to prevent pressure ulcers per nursing routine care <John Archibald S - Last Filed: 12/15/18 10:57> Date of Encounter: 12/15/18 Time of Encounter: 09:06 Assessment and Plan (1) Septic shock Current Visit: Yes Status: Resolved Has since resolved. - on admission met SIRS criteria for T = 101.5, HR = 118, BP = 87/48 - currently meets SIRS criteria for HR 103, WBC 2.7 Recent diagnosis of influenza A, swab (+) on admission Blood cx (+) for g(+) cocci on 12/12 CXR showed bilateral perihilar infiltrates, these are likely chronic and were seen on XR in 2013 - likely from BOOP May also have a component of adrenal failure, pt had low normal cortisol Plan: - repeat blood cx pending (12/13) - continue doxycycline, vancomycin and zosyn - continue tamiflu 5/10 doses given - cortef has been discontinued, resume home prednisone - right IJ to be removed - continue supplemental O2 as needed, BiPAP at night - levophed has been discontinued - restart coreg and spironolactone, BP has been stable - plan to transfer to either or [facility] today, order has been placed (2) Influenza A Current Visit: Yes Status: Acute Likely contributing to pt respiratory failure - flu swab on admission positive for influenza A Plan: - continue tamiflu, 5/10 doses given (3) Anemia Current Visit: Yes Status: Acute Hemoglobin on admission 10.5 - has since decreased to 8.1 Plan: - FOBT pending - type and screen - H&H q6hr Qualifiers: Qualified Code(s): D64.9 - Anemia, unspecified (4) CHF (congestive heart failure) Current Visit: No Status: Chronic Chronic. Not in acute exacerbation. - no previous ECHO listed Plan: - continue lasix 40mg BID - continue aldactone, carvediol - ?home meds dont include a statin Qualifiers: Qualified Code(s): I50.9 - Heart failure, unspecified (5) Lupus anticoagulant disorder Current Visit: No Status: Chronic Chronic. On coumadin. (6) Diabetes mellitus Current Visit: Yes Status: Acute Chronic - glucose this AM 125, adequate control Plan: - ADA diet - LDSS - accuchecks Qualifiers: Qualified Code(s): E11.9 - Type 2 diabetes mellitus without complications (7) GERD (gastroesophageal reflux disease) Current Visit: Yes Status: Acute chronic - takes prilosec Qualifiers: Qualified Code(s): K21.9 - Gastro-esophageal reflux disease without esophagitis (8) BOOP (bronchiolitis obliterans with organizing pneumonia) Current Visit: Yes Status: Acute Chronic - takes daily prednisone and cellcept - prednisone currently held 2/2 sepsis, which has since resolved - continue to hold cellcept (9) DVT prophylaxis Current Visit: Yes Status: Acute on coumadin (10) Hypokalemia Current Visit: Yes Status: Acute Potassium 3.3, replaced Subjective Principal diagnosis: Influenza, hypotension, generalized weakness Interval history: Patient is seen at bedside. She is without complaint. She asks if she can go home today. She has no chest pain, n/v/d, or increasing difficulty breathing. She is resting comfortably. Objective PUL Vital signs: Last Vital Signs Temp 98.3 F 12/15/18 03:45 Pulse 103 12/15/18 06:00 Resp 18 12/15/18 06:00 BP 151/91 12/15/18 06:00 Pulse Ox 95 12/15/18 06:00 General appearance: no acute distress, alert Eyes: nonicteric ENT: oropharynx moist Effort: normal Auscultation: bilateral: diminished breath sounds Cardiovascular: other (tacycardia) Gastrointestinal: soft, non-tender, non-distended Integumentary: normal Extremities: no cyanosis Musculoskeletal: no deformities normal mental status, non-focal exam mood appropriate, affect normal Results - Laboratory Findings CBC and BMP: 12/15/18 03:55 12/15/18 03:55 PT/INR, D-dimer PT 37.2 Seconds (9.4-12.1) H 12/15/18 03:55 Abnormal lab findings: Abnormal lab results WBC 2.7 K/mcL (4.3-11.1) L 12/15/18 03:55 RBC 3.22 M/mcL (3.82-4.97) L 12/15/18 03:55 Hgb 8.1 g/dL (11.5-15.4) L 12/15/18 03:55 Hct 26.8 % (35.3-44.9) L 12/15/18 03:55 MCH 25.2 pg (28.0-33.3) L 12/15/18 03:55 MCHC 30.2 g/dL (31.6-35.5) L 12/15/18 03:55 RDW 16.0 % (11.5-14.5) H 12/15/18 03:55 MPV 8.8 fL (9.4-12.4) L 12/15/18 03:55 Neutrophils # 1.4 K/mcL (1.6-8.9) L 12/15/18 03:55 PT 37.2 Seconds (9.4-12.1) H 12/15/18 03:55 APTT 40.1 Seconds (26.0-36.0) H 12/12/18 08:36 Potassium 3.3 mEq/L (3.5-5.1) L 12/15/18 03:55 Chloride 112 mEq/L (98-107) H 12/15/18 03:55 BUN 5 mg/dL (8-23) L 12/15/18 03:55 Creatinine 0.46 mg/dL (0.60-1.20) L 12/15/18 03:55 Glucose 125 mg/dL (70-105) H 12/15/18 03:55 POC Glucose 137 mg/dL (70-99) H 12/14/18 18:57 Calcium 7.5 mg/dL (8.6-10.3) L 12/15/18 03:55 Venous Ioniz Calcium 1.02 mmol/L (1.15-1.35) L 12/12/18 19:15 Phosphorus 2.2 mg/dL (2.7-4.5) L 12/14/18 03:12 Total Bilirubin 0.2 mg/dL (0.3-1.0) L 12/12/18 17:43 B-Natriuretic Peptide 106 pg/mL (Less than 100) H 12/12/18 08:36 Serum Total Protein 5.4 g/dL (6.4-8.9) L 12/12/18 17:43 Albumin 2.7 g/dL (3.5-5.7) L 12/12/18 17:43 Albumin/Globulin Ratio 1.0 (1.1-2.2) L 12/12/18 17:43 Ur Leukocyte Esterase Small (Negative) H 12/12/18 14:21 Ur Culture Indicated? YES (NO) A 12/12/18 14:21 Staphylococcus sp PCR DETECTED (Not Detect) A 12/12/18 08:29 - Microbiology Findings Microbiology Findings: Microbiology, Last 48 Hours 12/12/18 08:39 Blood Culture - Preliminary Port System Gram Positive Cocci 12/12/18 08:29 Blood Culture - Preliminary Port System Gram Positive Cocci 12/12/18 14:21 Urine Culture - Final Urine,Clean Catch No significant growth. 12/13/18 10:49 Blood Culture - Preliminary Port System Culture is incubating and being continuously monitored for growth. Final report to follow. 12/13/18 10:39 Blood Culture - Preliminary Peripheral Venipuncture Culture is incubating and being continuously monitored for growth. Final report to follow. 12/13/18 10:39 Blood Culture - Preliminary Peripheral Venipuncture Culture is incubating and being continuously monitored for growth. Final report to follow. - Clinical Findings Intake & Output: Intake & Output 12/14/18 12/14/18 12/15/18 15:59 23:59 07:59 Intake Total 450 / 450 200 / 200 350 / 350 Output Total 325 / 325 550 / 550 600 / 600 Balance 125 / 125 -350 / -350 -250 / -250 Weight 76.8 kg
[2018-12-15] MEDS: Insulin LISPRO 300 UNITS/3 ML VIAL SQ SCH ×3 (09:05→17:36)
[2018-12-15] MEDS: Oseltamivir Phosphate 30 MG CAPSULE PO SCH (09:11)
[2018-12-15] MEDS: Piperacillin/Tazobactam 3.375 GM in 0.9 % Sodium Chloride Mini Bag 100 ML IVPB SCH ×2 (09:11→16:14)
--- NOTE | 2018-12-15 10:56 | Infectious Disease Consult ---
Date of Encounter: 12/15/18 Time of Encounter: 10:52 Assessment and Plan (1) Septic shock Status: Resolved Assessment and plan: Septic shock on initial presentation, with vitals temperature of 101.5F, HR 118, BP 87/48. WBC 9.8, Lactic acid 3.2. -Etiology flu A and GPC -source likely the flu and bacteremia -Afebrile, hemodynamically stable -WBC 2.7 (yesterday 3.4) -Flu A positive -12/12/2018 Blood cultures from Port demonstrating GPC x2 -12/13/2018 blood culture from peripheral x2 and port x1 pending -Serology demonstrating staph aureus -Urinalysis demonstrating leukocyte esterase -Urine culture negative -Chest x-ray demonstrating chronic bilateral perihilar infiltrate -Hip x-ray demonstrating no acute osseous injury -right IJ CVC Plan: -patient is no longer requiring vasopressin support. -currently on doxycycline day 4 (started 12/12) -currently on Zosyn day 4 (started 12/12) -currently on vancomycin day 4 (started 12/12) -await blood culture results (2) Bacteremia Status: Acute Assessment and plan: Bacteremia demonstrated blood cultures -etiology GPC -source is left-sided port -12/12/2018 Blood cultures from Port demonstrating GPC x2 -12/13/2018 blood culture from peripheral x2 and port x1 pending -Serology demonstrating staph aureus Plan: -continue vancomycin -await blood cultures -consider port removal (3) Influenza A Status: Acute Assessment and plan: Influenza a positive. Patient was in contact with granddaughter whom was positive for the flu. Patient received Tamiflu in the ED. -Continue management as above (4) Diarrhea Status: Acute Assessment and plan: Patient having diarrhea 5-6 loose watery stools for the past 2 days. She believes it is from abx. She denies ever having c.diff. No abdominal pain. She does not think it is getting better. -etiology may be infectious; C.diff secondary to abx. or side effect from abx plan: -order c.diff test Qualifiers: Diarrhea type: presumed infectious Qualified Code(s): R19.7 - Diarrhea, unspecified (5) Lupus anticoagulant disorder Status: Chronic Assessment and plan: Known lupus anticoagulant taking warfarin and mycophenolate. -holding mycophenolate now -patient receiving warfarin (6) BOOP (bronchiolitis obliterans with organizing pneumonia) Status: Acute Assessment and plan: History of recent BOOP with treatment by glazier helper at [place]. (7) Diabetes mellitus Status: Acute Assessment and plan: history of diabetes. -primary team to manage Qualifiers: Diabetes mellitus type: type 2 Diabetes mellitus supervisor long goods insulin use: w [facility] supervisor long goods use Diabetes mellitus complication status: without compl ication Qualified Code(s): E11.9 - Type 2 diabetes mellitus without compl ications (8) Immunosuppression Status: Acute Assessment and plan: Patient is currently immunosuppressed secondary to medication for lupus anticoagulant. She takes mycophenolate. -Afebrile -WBC 2.7 -Patient is currently not receiving mycophenolate. Infectious Disease HPI - Data of Consult Patient: new to practice Consult date: 12/14/18 Requesting Physician: Jerry Lombardo MD Primary Care Provider: Berta Cotto MD - Consult Narrative Reason for consult: Positive blood cultures History of present illness: Ms. Ziegler is a 68 year old female who presented to [facility] on 12/12/2018 due to weakness. Infectious disease was consulted on 12/14/2018 due to positive blood cultures and recommendations for management. The patient has a past medical history of BOOP on chronic steroids, lupus anticoagulant, CHF, diabetes, Gerd. Upon examination of the patient she reported that on 12/10/2018 she developed symptoms of shortness of breath. Additionally she had cough with green sputum production, malaise/body aches, fever, chills. She went to her glazier helper the next day whom she stated tested her for the flu, which resulted in flu a positive. She was started on azithromycin and prednisone was increased. She reported that the next couple days she continued to worsen and not improve. She was told to go to the ED should she worsen. She stated that on 12/12/2018 she went to the bathroom and she was too weak to get up from the toilet. She then slid down to the floor after attempting to get up due to the weakness. EMS went to her home and brought her to the ED. She admits to recent sick contact of her granddaughter whom tested positive for the flu. She stated that she had the flu shot this year. She denies recent hospitalization. She denies tobacco use, drugs, alcohol use. She takes chronic steroids for BOOP and Coumadin for lupus anticoagulant. The patient reported today that over the past couple days she has had 5-6 liquid bowel movements a day since starting antibiotics. She has never had C diff before. She attributes the diarrhea to the antibiotics. She denies abdominal pain. The diarrhea is not improving. Initial vitals in the ED were temperature of 101.5F, HR 118, BP 87/48. WBC 9.8, hemoglobin 10.5, platelets to 73, INR 2.8, PT 31.4. Lactic acid 3.2, BNP 106. Urinalysis demonstrating leukocyte esterase. Flu a positive. Blood cultures from Port on 12/12/2018 demonstrating GPC. Serology demonstrating staph aureus. Chest x-ray demonstrating chronic bilateral perihilar infiltrate. Hip x-ray demonstrating no acute osseous injury. Urine culture negative. In the ED she was given IV fluids, Zosyn, vancomycin, doxycycline, Tamiflu, Solu -Medrol. The patient was started on levophed after a right sided IJ CVC was placed. She was then transferred to the ICU for septic shock. CC: Jerry Lombardo MD Past Med Surg Social Fam HX - Past Medical History Attestation: Yes The following information was validated with the patient. Source: patient Medical history: CHF, diabetes, GERD, other Additional medical history: lung disease, lupus Psychiatric history: no psych history - Past Surgical History Surgical History: cataract Additional surgical history: lung biopsy, sinus, spinal fusion, - Social History Smoking Status: Never smoker Smokeless Tobacco Status: No Alcohol use: none Drug use: none - Family History Father Living Status: Age at : 62 Hx Family Neurologic Disorders: Yes (brain aneurysm) Grandmother Living Status: Hx Family Cancer: Yes Hx Family Neurologic Disorders: Yes (stroke) Sister Living Status: Age at : 68 Hx Family Cancer: Yes (breast) Infectious Disease-CN:Meds Benzonatate [Tessalon] 100 mg PO HS 12/12/18 [History] Calcium Carbonate/Vitamin D3 [Calcium 600 + Vit D Tablet] 1 tab PO DAILY 12/12/18 [History] Carvedilol 12.5 mg PO BID 12/12/18 [History] Fexofenadine/Pseudoephedrine [Rahda-D 12 Hour Tablet] 180 mg PO DAILY 12/12/18 [History] Furosemide [Lasix] 40 mg PO BID 12/12/18 [History] Gabapentin 600 mg PO HS 12/12/18 [History] Multivit-Min/FA/Lycopen/Lutein [Centrum Silver Tablet] 1 tab PO DAILY 12/12/18 [History] Mycophenolate Mofetil [Cellcept] 500 mg PO BID 12/12/18 [History] Ondansetron HCl [Zofran] 4 mg PO Q8H PRN 12/12/18 [History] RX: Alendronate Sodium [Fosamax] 70 mg PO SA 12/12/18 [History] RX: Gabapentin [Neurontin] 100 mg PO DAILY 12/12/18 [History] RX: Omeprazole [PriLOSEC] 40 mg PO BID 12/12/18 [History] RX: Potassium Chloride [K-Tab ER] 20 meq PO HS 12/12/18 [History] RX: metFORMIN [Glucophage] 500 mg PO BIDWM 12/12/18 [History] Spironolactone [Aldactone] 100 mg PO DAILY 12/12/18 [History] Vitamin E 400 unit PO DAILY 12/12/18 [History] Warfarin [Coumadin] 2.5 mg PO QPM 12/12/18 [History] predniSONE [PredniSONE] 10 mg PO DAILY 12/12/18 [History] 3 Allergy/AdvReac Type Severity Reaction Status Date / Time No Known Allergies Allergy Verified 12/12/18 07:49 - Constitutional Constitutional: Present: chills, fatigue, fever(s), lethargy, malaise, weakness - EENT Eyes: Absent: blurry vision, change in vision - Cardiovascular Cardiovascular: Absent: chest pain, edema, palpitations - Respiratory Respiratory: Present: cough, dyspnea, wheezing. Absent: hemoptysis - Gastrointestinal Gastrointestinal: Present: diarrhea, loose stools. Absent: abdominal pain, bloating, cramping, melena, nausea, vomiting - Genitourinary Genitourinary: Absent: difficulty urinating, difficulty voiding, dysuria - Integumentary Integumentary: Absent: erythema, non-healing lesions, skin ulcer - Neurological Neurological: Present: frequent falls. Absent: confusion, convulsions, dizziness - Psychiatric Psychiatric: Absent: confusion - Hematologic/Lymphatic Hematologic/Lymphatic: Present: easy bleeding, easy bruising Exam - Constitutional Vitals: Temp Pulse Resp BP Pulse Ox 98.8 F 98 20 136/118 98 12/15/18 09:12 12/15/18 09:00 12/15/18 09:00 12/15/18 09:00 12/15/18 09:00 Exam: Gen.: Vitals noted. No acute distress. AAOx3 HEENT: oropharynx clear, Normocephalic, atraumatic Neck: Supple. No adenopathy. Cardiac: RRR, no murmur, +S1/S2 Pulmonary: bilaterally expiratory wheezes, no rales or rhonchi, equal chest expansion Abdomen: soft, nontender, Bowel sounds noted, no guarding skin: left-sided port, non-erythematous. Right-sided IJ CVC MSK: ROM intact, no joint swelling noted Extremities: no BLE edema, nontender calf, no cyanosis or clubbing Neuro: A&Ox3, moves all extremities Psych: Appropriate mood and behavior Infectious Disease CN: Results - Labs CBC & Chem 7: 12/16/18 06:19 12/16/18 06:19 Cultures: Cultures 12/12/18 08:39 Blood Culture - Preliminary Port System Gram Positive Cocci 12/12/18 08:29 Blood Culture - Preliminary Port System Gram Positive Cocci 12/12/18 14:21 Urine Culture - Final Urine,Clean Catch No significant growth. 12/13/18 10:49 Blood Culture - Preliminary Port System Culture is incubating and being continuously monitored for growth. Final report to follow. 12/13/18 10:39 Blood Culture - Preliminary Peripheral Venipuncture Culture is incubating and being continuously monitored for growth. Final report to follow. 12/13/18 10:39 Blood Culture - Preliminary Peripheral Venipuncture Culture is incubating and being continuously monitored for growth. Final report to follow. 12/12/18 11:38 Influenza Types A,B Antigen - Final Nasopharyngeal Serology: Serology 12/12/18 12/12/18 Range/Units 14:21 08:29 Urine Color Yellow (Yellow) Urine Clarity Clear (Clear) Urine pH 6.0 (5.0-8.0) pH Units Ur Specific Angelica 1.011 (1.010-1.025) Urine Protein Negative (Neg-Trace) mg/dL Urine Glucose (UA) Normal (Normal) mg/dL Urine Ketones Negative (Negative) mg/dL Urine Blood Negative (Negative) Urine Nitrite Negative (Negative) Urine Bilirubin Negative (Negative) Urine Urobilinogen Normal (Normal) mg/dL Ur Leukocyte Esterase Small H (Negative) Urine Microscopic RBC 0-3 (0-3) per hpf Urine Microscopic WBC 0-3 (0-3) per hpf Ur Squamous Epith Cells Few (None-Few) per lpf Urine Bacteria None Seen (None-Few) per hpf Hyaline Casts None Seen (None-Few) per lpf Ur Culture Indicated? YES A (NO) A. baumannii (PCR) Not Detected (Not Detect) Meghan albicans (PCR) Not Detected (Not Detect) C. glabrata (PCR) Not Detected (Not Detect) C. krusei (PCR) Not Detected (Not Detect) C. parapsilosis (PCR) Not Detected (Not Detect) C. tropicalis (PCR) Not Detected (Not Detect) Enterobacteriac sp PCR Not Detected (Not Detect) E. cloacae complex PCR Not Detected (Not Detect) Enterococcus sp PCR Not Detected (Not Detect) E. coli (PCR) Not Detected (Not Detect) H. influenzae (PCR) Not Detected (Not Detect) Klebsiella oxytoca PCR Not Detected (Not Detect) Klebsiella pneumoniae Not Detected (Not Detect) List. monocytogenes PCR Not Detected (Not Detect) N. meningitidis (PCR) Not Detected (Not Detect) Proteus species (PCR) Not Detected (Not Detect) Serratia marcescens PCR Not Detected (Not Detect) Staphylococcus sp PCR DETECTED A (Not Detect) Staph aureus (PCR) Not Detected (Not Detect) mecA-Methicil Res Gene Not Detected (Not Detect) Streptococcus sp PCR Not Detected (Not Detect) Group A Strep DNA Not Detected (Not Detect) Group B Strep (PCR) Not Detected (Not Detect) Strep pneumoniae (PCR) Not Detected (Not Detect) P. aeruginosa (PCR) Not Detected (Not Detect) Paco/B-Vanco Res Genes N/A (Not Detect) KPC (blaKPC) Detect PCR N/A (Not Detect) Consult Discharge Plan - Plan Referrals: Berta Cotto MD [Primary Care Provider] - - Attending Attestation I examined this patient and my medical decision-making was reviewed with the Resident Physician. I agree with the documented findings, disposition and treatment plan as described except to the extent set forth below. This is an addendum to original report dictated by resident physician. Please refer to residents note for full detail. Patient with extensive past medical history mentioned below presented with septic shocklike symptoms. Patient was noted to have the flu. Patient is immunosuppressed with taking CellCept and prednisone because of history of BOOP. Patient also has an indwelling chest port on the left side. Patient tells me that they only use it to excess blood draw and they do that once a month. Other than that is being used for anything other than the fact that she is a hard stick and this with a draw the blood. Patient denied any pain or swelling or redness or tenderness or streaking around the chest port. Assessment and plan: 1.Septic shock 2.flu 3.pneumonia likely secondary to viral flu 4.positive cultures with coag negative staph in the chest port. Not sure how clinically significant distress. There is no bacteremia in the blood stream. Repeat cultures are pending. Recommendations: Continue Tamiflu 75 mg by mouth twice a day for 5 days total Can de-escalate the Zosyn and the doxycycline We will probably stop the vancomycin tomorrow depending on the cultures from the peripheral blood We will need to discuss with the primary team to see if they can keep the chest port or if were going to remove it. Monitor labs and for drug toxicity
[2018-12-15] MEDS: Doxycycline 100 MG in 0.9 % Sodium Chloride Mini Bag 100 ML IVPB SCH ×2 (11:25→21:12)
[2018-12-15] MEDS: predniSONE 10 MG TABLET PO SCH (11:45)
[2018-12-15 18:24] LABS: Hematocrit 27.5 % (35.3-44.9); Hemoglobin 8.2 g/dL (11.5-15.4)
[2018-12-15 21:53] LABS: Hemoglobin 7.5 g/dL (11.5-15.4)
[2018-12-16] MEDS: Piperacillin/Tazobactam 3.375 GM in 0.9 % Sodium Chloride Mini Bag 100 ML IVPB SCH ×2 (00:14→08:57)
[2018-12-16 06:27] LABS: Basophils % 0.2 %; Eosinophils # 0.1 K/mcL (0.0-0.6); Eosinophils % 1.2 %; Hematocrit 26.5 % (35.3-44.9); Immature Granulocytes % 0.6 % (0-4); Lymphocytes # 1.6 K/mcL (0.6-4.6); Lymphocytes % 32.9 %; Mean Corpuscular HGB Conc 30.2 g/dL (31.6-35.5); Mean Corpuscular Hemoglobin 25.4 pg (28.0-33.3); Mean Corpuscular Volume 84.1 fL (83.0-100.0); Mean Platelet Volume 8.6 fL (9.4-12.4); Monocytes # 0.8 K/mcL (0.0-1.3); Monocytes % 15.4 %; Neutrophils # 2.4 K/mcL (1.6-8.9); Platelet Count 227 K/mcL (140-400); Red Blood Count 3.15 M/mcL (3.82-4.97); Red Cell Distribution Width 16.3 % (11.5-14.5); Segmented Neutrophils % 49.7 %
[2018-12-16 06:35] LABS: INR 2.6; Prothrombin Time 28.8 Seconds (9.4-12.1)
[2018-12-16 06:49] LABS: BUN/Creatinine Ratio 10 (6-26); Blood Urea Nitrogen 5 mg/dL (8-23); Calcium 7.6 mg/dL (8.6-10.3); Carbon Dioxide 25 mEq/L (23-29); Chloride 112 mEq/L (98-107); Glucose 78 mg/dL (70-105); Osmolality,Calculated 292 (280-300); Sodium 143 mEq/L (136-145); eGFR For Non-African Americans > 60 (> 60)
[2018-12-16] MEDS: Insulin LISPRO 300 UNITS/3 ML VIAL SQ SCH ×3 (08:41→17:37)
[2018-12-16] MEDS: predniSONE 10 MG TABLET PO SCH (08:57)
--- NOTE | 2018-12-16 09:29 | Infectious Disease Progress No ---
Date of Encounter: 12/16/18 Time of Encounter: 09:26 - Assessment and Plan (1) Septic shock Current Visit: Yes Status: Resolved Resolved. Septic shock on initial presentation, with vitals temperature of 101.5F, HR 118, BP 87/48. WBC 9.8, Lactic acid 3.2. -Etiology flu A and GPC -source likely the flu A and bacteremia -Afebrile, hemodynamically stable -WBC 4.9 (yesterday 2.7) -Flu A positive -12/12/2018 Blood cultures from Port demonstrating staphylococcus epidermidis and staphyloco hominis ssp hominis x2 -12/13/2018 blood culture from peripheral x2 and port x1 pending -Serology demonstrating staph aureus -Urinalysis demonstrating leukocyte esterase -Urine culture negative -Chest x-ray demonstrating chronic bilateral perihilar infiltrate -Hip x-ray demonstrating no acute osseous injury Plan: -today's last day for total of 5 days of treatment of Tamiflu -stop doxycycline day 5 (started 12/12) -stop Zosyn day 5 (started 12/12) -stop vancomycin day 5 (started 12/12) -await blood culture results (2) Bacteremia Current Visit: Yes Status: Acute Bacteremia demonstrated blood cultures -etiology staphylococcus epidermidis and staphyloco hominis ssp hominis -source is left-sided port -12/12/2018 Blood cultures from Port demonstrating staphylococcus epidermidis and staphyloco hominis ssp hominis x2 -12/13/2018 blood culture from peripheral x2 and port x1 pending Plan: -patient no longer needs treatment of antibiotics. -stop vancomycin -will discuss with the patient the option of removing the port. -await blood cultures (3) Influenza A Current Visit: Yes Status: Acute Influenza a positive. Patient was in contact with granddaughter whom was positive for the flu. Patient received Tamiflu in the ED. -patient reports improvement of fever, chills, malaise, body aches plan: -continue tamiflu day 5 of 5 day treatment (4) Diarrhea Current Visit: Yes Status: Acute Patient having diarrhea 5-6 loose watery stools for the past 2 days. She believes it is from abx. She denies ever having c.diff. No abdominal pain. She does not think it is getting better. -etiology may be side effect from abx. C.diff ruled out -today patient reports improvement of diarrhea with having less bowel movements. denies abdominal pain -c.diff test negative plan: -continue to monitor Qualifiers: Diarrhea type: presumed infectious Qualified Code(s): R19.7 - Diarrhea, unspecified (5) Lupus anticoagulant disorder Current Visit: No Status: Chronic Known lupus anticoagulant taking warfarin and mycophenolate. 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 She follows with her radio machinist at [place], Dr. Ware. (7) Diabetes mellitus Current Visit: Yes Status: Chronic history of diabetes. -primary team to manage Qualifiers: Diabetes mellitus type: type 2 Diabetes mellitus prison insulin use: without prison use Diabetes mellitus complication status: without complication Qualified Code(s): E11.9 - Type 2 diabetes mellitus without complications (8) Immunosuppression Current Visit: Yes Status: Acute Patient is currently immunosuppressed secondary to medication for lupus anticoagulant. She takes mycophenolate. -Afebrile -WBC 4.9 (yesterday 2.7) -Patient is currently not receiving mycophenolate. - Subjective Interval history: Patient seen examined at bedside. She is resting comfortably in no acute distre ss. She reports that she feels symptomatically improved and is asking when she will be discharged. She reports improvement in cough and shortness of breath. She reports also improvement in diarrhea which has significantly decreased from yesterday. She denies body aches, fever, chills, headache, abdominal pain. Infect Dis PN-Objective Data - Labs CBC & Chem 7: 12/18/18 04:42 12/18/18 04:42 Labs: Laboratory Results - last 24 hr 12/15/18 12/15/18 12/15/18 12:20 13:31 17:17 WBC RBC Hgb Hct MCV MCH MCHC RDW Plt Count MPV Immature Gran % Seg Neutrophils % Lymphocytes % Monocytes % Eosinophils % Basophils % Neutrophils # Lymphocytes # Monocytes # Eosinophils # Basophils # PT INR Sodium Potassium Chloride Carbon Dioxide BUN Creatinine Est GFR ( Amer) Est GFR (Non-Af Amer) BUN/Creatinine Ratio Glucose POC Glucose 101 H 113 H Calculated Osmolality Calcium Vancomycin Trough Blood Type A POSITIVE Antibody Screen NEGATIVE 12/15/18 12/15/18 12/15/18 18:09 21:17 21:17 WBC RBC Hgb 8.2 L 7.5 L Hct 27.5 L 25.0 L MCV MCH MCHC RDW Plt Count MPV Immature Gran % Seg Neutrophils % Lymphocytes % Monocytes % Eosinophils % Basophils % Neutrophils # Lymphocytes # Monocytes # Eosinophils # Basophils # PT INR Sodium Potassium Chloride Carbon Dioxide BUN Creatinine Est GFR ( Amer) Est GFR (Non-Af Amer) BUN/Creatinine Ratio Glucose POC Glucose Calculated Osmolality Calcium Vancomycin Trough 12 H Blood Type Antibody Screen 12/16/18 12/16/18 12/16/18 06:19 06:19 06:19 WBC 4.9 D RBC 3.15 L Hgb 8.0 L Hct 26.5 L MCV 84.1 MCH 25.4 L MCHC 30.2 L RDW 16.3 H Plt Count 227 MPV 8.6 L Immature Gran % 0.6 Seg Neutrophils % 49.7 Lymphocytes % 32.9 Monocytes % 15.4 Eosinophils % 1.2 Basophils % 0.2 Neutrophils # 2.4 Lymphocytes # 1.6 Monocytes # 0.8 Eosinophils # 0.1 Basophils # 0.0 PT 28.8 H INR 2.6 Sodium 143 Potassium 3.0 L Chloride 112 H Carbon Dioxide 25 BUN 5 L Creatinine 0.48 L Est GFR ( Amer) > 60 Est GFR (Non-Af Amer) > 60 BUN/Creatinine Ratio 10 Glucose 78 POC Glucose Calculated Osmolality 292 Calcium 7.6 L Vancomycin Trough Blood Type Antibody Screen Cultures: Cultures 12/12/18 08:39 Blood Culture - Preliminary Port System Gram Positive Cocci 12/12/18 08:29 Blood Culture - Preliminary Port System Gram Positive Cocci 12/12/18 14:21 Urine Culture - Final Urine,Clean Catch No significant growth. 12/13/18 10:49 Blood Culture - Preliminary Port System Culture is incubating and being continuously monitored for growth. Final report to follow. 12/13/18 10:39 Blood Culture - Preliminary Peripheral Venipuncture Culture is incubating and being continuously monitored for growth. Final report to follow. 12/13/18 10:39 Blood Culture - Preliminary Peripheral Venipuncture Culture is incubating and being continuously monit ored for growth. Final report to follow. 12/12/18 11:38 Influenza Types A,B Antigen - Final Nasopharyngeal Serology 02/22/19 02/22/19 Range/Units 14:21 08:29 Urine Color Yellow (Yellow) Urine Clarity Clear (Clear) Urine pH 6.0 (5.0-8.0) pH Units Ur Specific [place] 1.011 (1.010-1.025) Urine Protein Negative (Neg-Trace) mg/dL Urine Glucose (UA) Normal (Normal) mg/dL Urine Ketones Negative (Negative) mg/dL Urine Blood Negative (Negative) Urine Nitrite Negative (Negative) Urine Bilirubin Negative (Negative) Urine Urobilinogen Normal (Normal) mg/dL Ur Leukocyte Esterase Small H (Negative) Urine Microscopic RBC 0-3 (0-3) per hpf Urine Microscopic WBC 0-3 (0-3) per hpf Ur Squamous Epith Cells Few (None-Few) per lpf Urine Bacteria None Seen (None-Few) per hpf Hyaline Casts None Seen (None-Few) per lpf Ur Culture Indicated? YES A (NO) A. baumannii (PCR) Not Detected (Not Detect) Meghan albicans (PCR) Not Detected (Not Detect) C. glabrata (PCR) Not Detected (Not Detect) C. krusei (PCR) Not Detected (Not Detect) C. parapsilosis (PCR) Not Detected (Not Detect) C. tropicalis (PCR) Not Detected (Not Detect) Enterobacteriac sp PCR Not Detected (Not Detect) E. cloacae complex PCR Not Detected (Not Detect) Enterococcus sp PCR Not Detected (Not Detect) E. coli (PCR) Not Detected (Not Detect) H. influenzae (PCR) Not Detected (Not Detect) Klebsiella oxytoca PCR Not Detected (Not Detect) Klebsiella pneumoniae Not Detected (Not Detect) List. monocytogenes PCR Not Detected (Not Detect) N. meningitidis (PCR) Not Detected (Not Detect) Proteus species (PCR) Not Detected (Not Detect) Serratia marcescens PCR Not Detected (Not Detect) Staphylococcus sp PCR DETECTED A (Not Detect) Staph aureus (PCR) Not Detected (Not Detect) mecA-Methicil Res Gene Not Detected (Not Detect) Streptococcus sp PCR Not Detected (Not Detect) Group A Strep DNA Not Detected (Not Detect) Group B Strep (PCR) Not Detected (Not Detect) Strep pneumoniae (PCR) Not Detected (Not Detect) P. aeruginosa (PCR) Not Detected (Not Detect) Paco/B-Vanco Res Genes N/A (Not Detect) KPC (blaKPC) Detect PCR N/A (Not Detect) Exam - Constitutional Vitals: Temp Pulse Resp BP Pulse Ox 98.4 F 81 16 149/69 98 12/16/18 03:26 12/16/18 07:59 12/16/18 07:59 12/16/18 07:59 12/16/18 07:59 Exam: Gen.: Vitals noted. No acute distress. AAOx3 HEENT: oropharynx clear, Normocephalic, atraumatic Neck: Supple. No adenopathy. Cardiac: RRR, no murmur, +S1/S2 Pulmonary: CTA bilaterally no wheezing, rales or rhonchi, equal chest expansion Abdomen: soft, nontender, Bowel sounds noted, no guarding skin: left-sided port, non-erythematous Extremities: no BLE edema, nontender calf, no cyanosis or clubbing Neuro: A&Ox3, moves all extremities Psych: Appropriate mood and behavior Consult Discharge Plan - Plan Referrals: Berta Cotto MD [Primary Care Provider] - (The office of Dr. Cotto does not use web request . Fozia will need to call for a hospital follow up ) Prescriptions: RX: Ferrous Sulfate 325 mg PO DAILY@0800 30 Days #30 tablet RX: Vancomycin [Vancocin] 500 each IVP Q48H #4 vial - Attending Attestation I examined this patient and my medical decision-making was reviewed with the Resident Physician. I agree with the documented findings, disposition and treatment plan as described except to the extent set forth below. patient seen and examined. clinically doing much better had a discussion with patient she is adamant about keeping the port. Likely do vancomycin lock in the port and see if that works. Patient instructed to call me if she has any signs of infection incl around the port site or if she has any systemic symptoms including fevers, chills, or just weakness
--- NOTE | 2018-12-16 16:00 | Internal Med Progress Note ---
Hospitalist Progress Note - Encounter Date of Encounter: 12/16/18 Time of Encounter: 15:58 - Subjective Interval History: Patient transferred out from ICU yesterday. Doing well this afternoon. Denies any chest pain or palpitations. No fevers or chills reported overnight. She reports feeling much better. She has been getting up to the bedside commode but has not been ambulating yet. Remains on O2 supplementation. She does have home oxygen but only uses it at night. - Exam Vitals: Temp Pulse Resp BP Pulse Ox 98.0 F 94 18 129/63 97 12/16/18 11:24 12/16/18 11:24 12/16/18 11:24 12/16/18 11:24 12/16/18 11:24 Exam: General: Patient is alert, no acute distress, oriented x 3 ENT: Mucous membranes moist Respiratory: Bilateral end expiratory wheezing. Right-sided port catheter in place Cardiovascular: Regular rate and rhythm. s1 and s2 normal No clicks, rubs, gallops, or murmurs. No pedal edema Abdomen: Abdomen is soft, nontender. Bowel sounds are present Musculoskeletal: Spontaneously moving all extremities Skin: warm, dry, intact. Neuro: Alert oriented x 3 normal cranial nerves, no focal deficits - Assessment and Plan (1) Septic shock Current Visit: Yes Status: Resolved Assessment and Plan: Now resolved. Patient's suspected to be due to influenza A and gram-positive bacteremia. Patient is initial blood cultures from port catheter growing staph epidermidis and staph hominis. Suspected to be contaminant. Peripheral blood cultures have been negative. Repeat blood cultures from port system has also been negative. No indication for further antibiotics. (2) Anemia Current Visit: Yes Status: Chronic Assessment and Plan: Stable. Hemoglobin 8 today. Stool negative for occult blood. We will continue to monitor hemoglobin levels. Check iron profile, B12 and folic acid levels (3) BOOP (bronchiolitis obliterans with organizing pneumonia) Current Visit: Yes Status: Chronic Assessment and Plan: Patient takes CellCept at home and is on prednisone. (4) Diabetes mellitus Current Visit: Yes Status: Chronic Assessment and Plan: Blood sugars are well controlled. Diabetic diet. Continue insulin regimen (5) Diarrhea Current Visit: Yes Status: Acute Assessment and Plan: Stool negative for C. difficile toxin. Will place patient on lactobacillus. (6) DVT prophylaxis Current Visit: Yes Status: Acute Assessment and Plan: On Coumadin. INR is therapeutic (7) Influenza A Current Visit: Yes Status: Acute Assessment and Plan: Treating with Tamiflu. We will complete 5 day course. (8) Lupus anticoagulant disorder Current Visit: No Status: Chronic Assessment and Plan: Continue Coumadin (9) Acute respiratory failure with hypoxia Current Visit: Yes Status: Acute Assessment and Plan: Patient continues to require O2 supplementation with nasal cannula. Will evaluate for home oxygen with the walk test. Patient does have underlying BOOP cheese likely contributing to hypoxia. (10) CHF (congestive heart failure) Current Visit: Yes Status: Chronic Assessment and Plan: Will resume Lasix. Patient is not in any acute exacerbation at this time. No prior echocardiogram available. - Time Spent with Patient Total time spent is greater than 50% in coordination of care (as documented) at patient's floor/unit and/or counseling patient: Internal Medicine: Result - Labs CBC & Chem 7: 12/16/18 06:19 12/16/18 06:19 Labs: Short CBC 12/15/18 12/15/18 12/16/18 Range/Units 18:09 21:17 06:19 WBC 4.9 D (4.3-11.1) K/mcL Hgb 8.2 L 7.5 L 8.0 L (11.5-15.4) g/dL Hct 27.5 L 25.0 L 26.5 L (35.3-44.9) % Plt Count 227 (140-400) K/mcL Neutrophils # 2.4 (1.6-8.9) K/mcL BMP 12/16/18 06:19 Sodium 143 Potassium 3.0 L Chloride 112 H Carbon Dioxide 25 BUN 5 L Creatinine 0.48 L Glucose 78 Calcium 7.6 L - ABG Interpretation ABG results: PT/INR, D-dimer PT 28.8 Seconds (9.4-12.1) H 12/16/18 06:19 Consult Discharge Plan - Plan Referrals: Berta Cotto MD [Primary Care Provider] - (2) Anemia Qualifiers: Anemia type: unspecified type Qualified Code(s): D64.9 - Anemia, unspecified (4) Diabetes mellitus Qualifiers: Diabetes mellitus type: type 2 Diabetes mellitus termite treater helper insulin use: without termite treater helper use Diabetes mellitus complication status: without complication Qualified Code(s): E11.9 - Type 2 diabetes mellitus without complications (5) Diarrhea Qualifiers: Diarrhea type: presumed infectious Qualified Code(s): R19.7 - Diarrhea, unspecified (10) CHF (congestive heart failure) Qualifiers: Heart failure type: unspecified Heart failure chronicity: chronic Qualified Code(s): I50.9 - Heart failure, unspecified
[2018-12-16] MEDS ORDERED: *HR* Warfarin 2.5 MG TABLET PO ONE (18:00)
[2018-12-16] MEDS: Doxycycline 100 MG in 0.9 % Sodium Chloride Mini Bag 100 ML IVPB SCH (19:42)
[2018-12-16] MEDS: Lactobacillus 1 EACH CAP.SPRINK PO SCH (19:54)
[2018-12-17 03:46] LABS: Basophils % 0.4 %; Eosinophils # 0.1 K/mcL (0.0-0.6); Eosinophils % 2.7 %; Hematocrit 26.7 % (35.3-44.9); Hemoglobin 8.1 g/dL (11.5-15.4); Immature Granulocytes % 0.4 % (0-4); Lymphocytes # 1.7 K/mcL (0.6-4.6); Lymphocytes % 37.5 %; Mean Corpuscular HGB Conc 30.3 g/dL (31.6-35.5); Mean Corpuscular Hemoglobin 25.5 pg (28.0-33.3); Mean Platelet Volume 9.6 fL (9.4-12.4); Monocytes # 0.7 K/mcL (0.0-1.3); Monocytes % 15.8 %; Neutrophils # 1.9 K/mcL (1.6-8.9); Platelet Count 236 K/mcL (140-400); Red Blood Count 3.18 M/mcL (3.82-4.97); Red Cell Distribution Width 16.5 % (11.5-14.5); Segmented Neutrophils % 43.2 %
[2018-12-17 03:54] LABS: INR 2.2; Prothrombin Time 24.5 Seconds (9.4-12.1)
[2018-12-17 04:07] LABS: BUN/Creatinine Ratio 10 (6-26); Blood Urea Nitrogen 5 mg/dL (8-23); Calcium 7.7 mg/dL (8.6-10.3); Carbon Dioxide 24 mEq/L (23-29); Chloride 113 mEq/L (98-107); Glucose 79 mg/dL (70-105); Osmolality,Calculated 290 (280-300); Potassium 3.3 mEq/L (3.5-5.1); Sodium 142 mEq/L (136-145); eGFR For Non-African Americans > 60 (> 60)
[2018-12-17 04:16] LABS: Platelet Estimate Normal (Normal); Reactive Lymphocytes Present (Not Present)
[2018-12-17 05:10] LABS: Folate > 22.3 ng/mL (3.0-16.0); Vitamin B12 222 pg/mL (250-1100)
[2018-12-17] MEDS: Insulin LISPRO 300 UNITS/3 ML VIAL SQ SCH ×2 (08:28→11:00)
[2018-12-17] MEDS: predniSONE 10 MG TABLET PO SCH (08:33)
[2018-12-17] MEDS: Lactobacillus 1 EACH CAP.SPRINK PO SCH ×2 (08:33→20:30)
--- NOTE | 2018-12-17 08:49 | Infectious Disease Progress No ---
Date of Encounter: 12/17/18 Time of Encounter: 08:46 - Assessment and Plan (1) Septic shock Status: Resolved Resolved. Septic shock on initial presentation, with vitals temperature of 101.5F, HR 118, BP 87/48. WBC 9.8, Lactic acid 3.2. -Etiology flu A and GPC -source likely the flu A and bacteremia -Afebrile, hemodynamically stable -WBC 4.5 -Flu A positive -12/12/2018 Blood cultures from Port demonstrating staphylococcus epidermidis and staphyloco hominis ssp hominis x2 -12/13/2018 blood culture from peripheral NTD x2 -12/13/2018 blood culture port GPC -Serology demonstrating staph aureus -Urinalysis demonstrating leukocyte esterase -Urine culture negative -Chest x-ray demonstrating chronic bilateral perihilar infiltrate -Hip x-ray demonstrating no acute osseous injury Plan: -completed Tamiflu treatment -stopped doxycycline, Zosyn, vancomycin (2) Bacteremia Status: Acute Bacteremia demonstrated blood cultures -etiology staphylococcus epidermidis and staphyloco hominis ssp hominis -source is left-sided port -12/12/2018 Blood cultures from Port demonstrating staphylococcus epidermidis and staphyloco hominis ssp hominis x2 -12/13/2018 blood culture from peripheral NTD x2 -12/13/2018 blood culture port GPC Plan: -due to the repeat port cultures growing GPC, will consider a vancomycin lock. -will discuss with the patient the option of removing the port and she would like to keep it (3) Influenza A Status: Acute Influenza a positive. Patient was in contact with granddaughter whom was positive for the flu. Patient received Tamiflu in the ED. -patient reports improvement of fever, chills, malaise, body aches plan: -completed treatment of Tamiflu (4) Diarrhea Status: Acute Improved Patient having diarrhea 5-6 loose watery stools for the past 2 days. She believes it is from abx. She denies ever having c.diff. No abdominal pain. She does not think it is getting better. -etiology may be side effect from abx. C.diff ruled out -today patient reports improvement of diarrhea with having less bowel movements. denies abdominal pain -c.diff test negative plan: -continue to monitor Qualifiers: Diarrhea type: presumed infectious Qualified Code(s): R19.7 - Diarrhea, unspecified (5) Lupus anticoagulant disorder Status: Chronic Known lupus anticoagulant taking warfarin and mycophenolate. 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 She follows with her fur dry cleaner at [place], Dr. Ware. (7) Diabetes mellitus Status: Chronic history of diabetes. -primary team to manage Qualifiers: Diabetes mellitus type: type 2 Diabetes mellitus longterm insulin use: without longterm use Diabetes mellitus complication status: without complicat ion Qualified Code(s): E11.9 - Type 2 diabetes mellitus without complications (8) Immunosuppression Status: Acute Patient is currently immunosuppressed secondary to medication for lupus anticoagulant. She takes mycophenolate. -Afebrile -WBC 4.5 -Patient is currently not receiving mycophenolate. - Subjective Interval history: Patient seen examined at bedside. She is resting comfortably in no acute distress. She is asking when she can go home today. She reports improvement of shortness of breath, cough, and wheezing. She denies body aches, fever, chills, headache, abdominal pain. Infect Dis PN-Objective Data - Labs CBC & Chem 7: 12/18/18 04:42 12/18/18 04:42 Labs: Laboratory Results - last 24 hr 12/15/18 12/16/18 12/16/18 19:39 08:03 08:10 WBC RBC Hgb Hct MCV MCH MCHC RDW Plt Count MPV Immature Gran % Seg Neutrophils % Lymphocytes % Monocytes % Eosinophils % Basophils % Neutrophils # Lymphocytes # Monocytes # Eosinophils # Basophils # Reactive Lymphocytes Platelet Estimate PT INR Sodium Potassium Chloride Carbon Dioxide BUN Creatinine Est GFR ( Amer) Est GFR (Non-Af Amer) BUN/Creatinine Ratio Glucose POC Glucose 119 H 75 Calculated Osmolality Calcium Ferritin Vitamin B12 Folate Stool Occult Blood Negative Stl C. diff Tox B Gene 12/16/18 12/16/18 12/16/18 08:10 11:28 17:07 WBC RBC Hgb Hct MCV MCH MCHC RDW Plt Count MPV Immature Gran % Seg Neutrophils % Lymphocytes % Monocytes % Eosinophils % Basophils % Neutrophils # Lymphocytes # Monocytes # Eosinophils # Basophils # Reactive Lymphocytes Platelet Estimate PT INR Sodium Potassium Chloride Carbon Dioxide BUN Creatinine Est GFR ( Amer) Est GFR (Non-Af Amer) BUN/Creatinine Ratio Glucose POC Glucose 115 H 107 H Calculated Osmolality Calcium Ferritin Vitamin B12 Folate Stool Occult Blood Stl C. diff Tox B Gene Negative 12/16/18 12/17/18 12/17/18 19:39 03:35 03:35 WBC 4.5 RBC 3.18 L Hgb 8.1 L Hct 26.7 L MCV 84.0 MCH 25.5 L MCHC 30.3 L RDW 16.5 H Plt Count 236 MPV 9.6 Immature Gran % 0.4 Seg Neutrophils % 43.2 Lymphocytes % 37.5 Monocytes % 15.8 Eosinophils % 2.7 Basophils % 0.4 Neutrophils # 1.9 Lymphocytes # 1.7 Monocytes # 0.7 Eosinophils # 0.1 Basophils # 0.0 Reactive Lymphocytes Present A Platelet Estimate Normal PT INR Sodium 142 Potassium 3.3 L Chloride 113 H Carbon Dioxide 24 BUN 5 L Creatinine 0.49 L Est GFR ( Amer) > 60 Est GFR (Non-Af Amer) > 60 BUN/Creatinine Ratio 10 Glucose 79 POC Glucose 99 Calculated Osmolality 290 Calcium 7.7 L Ferritin Vitamin B12 Folate Stool Occult Blood Stl C. diff Tox B Gene 12/17/18 12/17/18 12/17/18 03:35 03:35 03:35 WBC RBC Hgb Hct MCV MCH MCHC RDW Plt Count MPV Immature Gran % Seg Neutrophils % Lymphocytes % Monocytes % Eosinophils % Basophils % Neutrophils # Lymphocytes # Monocytes # Eosinophils # Basophils # Reactive Lymphocytes Platelet Estimate PT 24.5 H INR 2.2 Sodium Potassium Chloride Carbon Dioxide BUN Creatinine Est GFR ( Amer) Est GFR (Non-Af Amer) BUN/Creatinine Ratio Glucose POC Glucose Calculated Osmolality Calcium Ferritin 19 Vitamin B12 222 L Folate > 22.3 H Stool Occult Blood Stl C. diff Tox B Gene 12/17/18 07:36 WBC RBC Hgb Hct MCV MCH MCHC RDW Plt Count MPV Immature Gran % Seg Neutrophils % Lymphocytes % Monocytes % Eosinophils % Basophils % Neutrophils # Lymphocytes # Monocytes # Eosinophils # Basophils # Reactive Lymphocytes Platelet Estimate PT INR Sodium Potassium Chloride Carbon Dioxide BUN Creatinine Est GFR ( Amer) Est GFR (Non-Af Amer) BUN/Creatinine Ratio Glucose POC Glucose 83 Calculated Osmolality Calcium Ferritin Vitamin B12 Folate Stool Occult Blood Stl C. diff Tox B Gene Cultures: Cultures 12/13/18 10:49 Blood Culture - Preliminary Port System Gram Positive Cocci 12/12/18 08:29 Blood Culture - Preliminary Port System Staphylococcus epidermidis Staphyloco hominis ssp hominis 12/12/18 08:39 Blood Culture - Preliminary Port System Staphylococcus epidermidis Staphyloco hominis ssp hominis 12/12/18 14:21 Urine Culture - Final Urine,Clean Catch No significant growth. 12/13/18 10:39 Blood Culture - Preliminary Peripheral Venipuncture Culture is incubating and being continuously monitored for growth. Final report to follow. 12/13/18 10:39 Blood Culture - Preliminary Peripheral Venipuncture Culture is incubating and being continuously monitored for growth. Final report to follow. 12/12/18 11:38 Influenza Types A,B Antigen - Final Nasopharyngeal Serology 12/16/18 12/16/18 12/12/18 Range/Units 08:10 08:10 14:21 Urine Color Yellow (Yellow) Urine Clarity Clear (Clear) Urine pH 6.0 (5.0-8.0) pH Units Ur Specific [place] 1.011 (1.010-1.025) Urine Protein Negative (Neg-Trace) mg/dL Urine Glucose (UA) Normal (Normal) mg/dL Urine Ketones Negative (Negative) mg/dL Urine Blood Negative (Negative) Urine Nitrite Negative (Negative) Urine Bilirubin Negative (Negative) Urine Urobilinogen Normal (Normal) mg/dL Ur Leukocyte Esterase Small H (Negative) Urine Microscopic RBC 0-3 (0-3) per hpf Urine Microscopic WBC 0-3 (0-3) per hpf Ur Squamous Epith Cells Few (None-Few) per lpf Urine Bacteria None Seen (None-Few) per hpf Hyaline Casts None Seen (None-Few) per lpf Ur Culture Indicated? YES A (NO) Stool Occult Blood Negative (Negative) Stl C. diff Tox B Gene Negative (Negative) A. baumannii (PCR) (Not Detect) Meghan albicans (PCR) (Not Detect) C. glabrata (PCR) (Not Detect) C. krusei (PCR) (Not Detect) C. parapsilosis (PCR) (Not Detect) C. tropicalis (PCR) (Not Detect) Enterobacteriac sp PCR (Not Detect) E. cloacae complex PCR (Not Detect) Enterococcus sp PCR (Not Detect) E. coli (PCR) (Not Detect) H. influenzae (PCR) (Not Detect) Klebsiella oxytoca PCR (Not Detect) Klebsiella pneumoniae (Not Detect) List. monocytogenes PCR (Not Detect) N. meningitidis (PCR) (Not Detect) Proteus species (PCR) (Not Detect) Serratia marcescens PCR (Not Detect) Staphylococcus sp PCR (Not Detect) Staph aureus (PCR) (Not Detect) mecA-Methicil Res Gene (Not Detect) Streptococcus sp PCR (Not Detect) Group A Strep DNA (Not Detect) Group B Strep (PCR) (Not Detect) Strep pneumoniae (PCR) (Not Detect) P. aeruginosa (PCR) (Not Detect) Paco/B-Vanco Res Genes (Not Detect) KPC (blaKPC) Detect PCR (Not Detect) 12/12/18 Range/Units 08:29 Urine Color (Yellow) Urine Clarity (Clear) Urine pH (5.0-8.0) pH Units Ur Specific [place] (1.010-1.025) Urine Protein (Neg-Trace) mg/dL Urine Glucose (UA) (Normal) mg/dL Urine Ketones (Negative) mg/dL Urine Blood (Negative) Urine Nitrite (Negative) Urine Bilirubin (Negative) Urine Urobilinogen (Normal) mg/dL Ur Leukocyte Esterase (Negative) Urine Microscopic RBC (0-3) per hpf Urine Microscopic WBC (0-3) per hpf Ur Squamous Epith Cells (None-Few) per lpf Urine Bacteria (None-Few) per hpf Hyaline Casts (None-Few) per lpf Ur Culture Indicated? (NO) Stool Occult Blood (Negative) Stl C. diff Tox B Gene (Negative) A. baumannii (PCR) Not Detected (Not Detect) Meghan albicans (PCR) Not Detected (Not Detect) C. glabrata (PCR) Not Detected (Not Detect) C. krusei (PCR) Not Detected (Not Detect) C. parapsilosis (PCR) Not Detected (Not Detect) C. tropicalis (PCR) Not Detected (Not Detect) Enterobacteriac sp PCR Not Detected (Not Detect) E. cloacae complex PCR Not Detected (Not Detect) Enterococcus sp PCR Not Detected (Not Detect) E. coli (PCR) Not Detected (Not Detect) H. influenzae (PCR) Not Detected (Not Detect) Klebsiella oxytoca PCR Not Detected (Not Detect) Klebsiella pneumoniae Not Detected (Not Detect) List. monocytogenes PCR Not Detected (Not Detect) N. meningitidis (PCR) Not Detected (Not Detect) Proteus species (PCR) Not Detected (Not Detect) Serratia marcescens PCR Not Detected (Not Detect) Staphylococcus sp PCR DETECTED A (Not Detect) Staph aureus (PCR) Not Detected (Not Detect) mecA-Methicil Res Gene Not Detected (Not Detect) Streptococcus sp PCR Not Detected (Not Detect) Group A Strep DNA Not Detected (Not Detect) Group B Strep (PCR) Not Detected (Not Detect) Strep pneumoniae (PCR) Not Detected (Not Detect) P. aeruginosa (PCR) Not Detected (Not Detect) Paco/B-Vanco Res Genes N/A (Not Detect) KPC (blaKPC) Detect PCR N/A (Not Detect) Exam - Constitutional Vitals: Temp Pulse Resp BP Pulse Ox 98.8 F 98 14 140/59 91 12/17/18 03:48 12/17/18 07:38 12/17/18 03:48 12/17/18 07:38 12/17/18 03:48 Exam: Gen.: Vitals noted. No acute distress. AAOx3 HEENT: oropharynx clear, Normocephalic, atraumatic Neck: Supple. No adenopathy. Cardiac: RRR, no murmur, +S1/S2 Pulmonary: bilaterally wheezing, no rales or rhonchi, equal chest expansion Abdomen: soft, nontender, Bowel sounds noted, no guarding skin: left-sided port, non-erythematous Extremities: no BLE edema, nontender calf, no cyanosis or clubbing Neuro: A&Ox3, moves all extremities Psych: Appropriate mood and behavior Consult Discharge Plan - Plan Instructions: Implanted Venous Access Port (DC), Implanted Venous Access Port (GEN), How to Care for Your Implanted Venous Access Port (DC), How to Care for Your Implanted Venous Access Port (GEN) Referrals: Berta Cotto MD [Primary Care Provider] - (The office of Dr. Cotto does not use web request . Fozia will need to call for a hospital follow up ) Prescriptions: RX: Ferrous Sulfate 325 mg PO DAILY@0800 30 Days #30 tablet RX: Vancomycin [Vancocin] 500 each IVP Q48H #4 vial - Attending Attestation I examined this patient and my medical decision-making was reviewed with the Resident Physician. I agree with the documented findings, disposition and treatment plan as described except to the extent set forth below. Patient seen and examined clinically doing well. Symptoms resolved. No cough no chest pain or shortness of breath. Chest port intact with no signs of infection. Patient adamant to go home with the port. I did talk to her in the presence of nursing staff. We said we will try to salvage it by doing vancomyci n locks for 7 days. Discussed with pharmacy staff they will set up the procedure. Patient instructed to call us if he starts having fevers chills or symptoms of port infection.
[2018-12-17] MEDS ORDERED: Desitin (Zinc Oxide) 56 GM TUBE TP PRN (15:19)
--- NOTE | 2018-12-17 16:03 | Internal Med Progress Note ---
Hospitalist Progress Note - Encounter Date of Encounter: 12/17/18 Time of Encounter: 09:00 - Subjective Interval History: Patient still have mild nonproductive cough. No fever. Vitals are stable. - Exam Vitals: Temp Pulse Resp BP Pulse Ox 98.8 F 104 20 122/71 95 12/17/18 03:48 12/17/18 14:48 12/17/18 14:06 12/17/18 14:48 12/17/18 14:06 Exam: General: Patient is alert, no acute distress, oriented x 3 ENT: Mucous membranes moist Respiratory: Bilateral coarse breath sound. Scattered wheezing. Right-sided port catheter in place Cardiovascular: Regular rate and rhythm. s1 and s2 normal No clicks, rubs, gallops, or murmurs. No pedal edema Abdomen: Abdomen is soft, nontender. Bowel sounds are present Musculoskeletal: Spontaneously moving all extremities Skin: warm, dry, intact. Neuro: Alert oriented x 3 normal cranial nerves, no focal deficits - Assessment and Plan (1) Anemia Current Visit: Yes Status: Chronic Assessment and Plan: Stable. Hemoglobin 8 today. Stool negative for occult blood. We will continue to monitor hemoglobin levels. Check iron profile, B12 and folic acid levels (2) Septic shock Current Visit: Yes Status: Resolved Assessment and Plan: Now resolved. Patient's suspected to be due to influenza A and gram-positive b acteremia. Patient is initial blood cultures from port catheter growing staph epidermidis and staph hominis. Suspected to be contaminant. Peripheral blood cultures have been negative. Repeat blood cultures from port system again positive for GPC, ID on case and plan for vancomycin lock. (3) Influenza A Current Visit: Yes Status: Acute Assessment and Plan: Treating with Tamiflu. We will complete 5 day course. (4) CHF (congestive heart failure) Current Visit: Yes Status: Chronic Assessment and Plan: Will resume Lasix. Patient is not in any acute exacerbation at this time. No prior echocardiogram available. (5) Lupus anticoagulant disorder Current Visit: No Status: Chronic Assessment and Plan: Continue Coumadin (6) Diabetes mellitus Current Visit: Yes Status: Chronic Assessment and Plan: Blood sugars are well controlled. Diabetic diet. d/c insulin as glucose is well controlled by diet only (7) BOOP (bronchiolitis obliterans with organizing pneumonia) Current Visit: Yes Status: Chronic Assessment and Plan: Patient takes CellCept at home and is on prednisone. (8) DVT prophylaxis Current Visit: Yes Status: Acute Assessment and Plan: On Coumadin. INR is therapeutic (9) Diarrhea Current Visit: Yes Status: Acute Assessment and Plan: Stool negative for C. difficile toxin. Will place patient on lactobacillus. (10) Acute respiratory failure with hypoxia Current Visit: Yes Status: Acute Assessment and Plan: Patient continues to require O2 supplementation with nasal cannula. Will evaluate for home oxygen with the walk test. Patient does have underlying BOOP which likely contributing to hypoxia. (11) Chronic steroid use Current Visit: Yes Status: Acute Assessment and Plan: She is on prednisone 10 mg daily chronically. Will give stress dose steroids if patient has acute stress. Continue home medications now DVT Prophylaxis: On Coumadin - Time Spent with Patient Total time spent is greater than 50% in coordination of care (as documented) at patient's floor/unit and/or counseling patient: 30 minutes 25 - 35 minutes Plan of Care Discussed with: patient Internal Medicine: Result - Labs CBC & Chem 7: 12/17/18 03:35 12/17/18 03:35 Labs: Short CBC 12/17/18 Range/Units 03:35 WBC 4.5 (4.3-11.1) K/mcL Hgb 8.1 L (11.5-15.4) g/dL Hct 26.7 L (35.3-44.9) % Plt Count 236 (140-400) K/mcL Neutrophils # 1.9 (1.6-8.9) K/mcL BMP 12/17/18 03:35 Sodium 142 Potassium 3.3 L Chloride 113 H Carbon Dioxide 24 BUN 5 L Creatinine 0.49 L Glucose 79 Calcium 7.7 L - ABG Interpretation ABG results: PT/INR, D-dimer PT 24.5 Seconds (9.4-12.1) H 12/17/18 03:35 Consult Discharge Plan - Plan Referrals: Berta Cotto MD [Primary Care Provider] - (The office of Dr. Cotto does not use web request . 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
[2018-12-17] MEDS: HEPARIN IVPB SCH (18:00)
[2018-12-17] MEDS ORDERED: *HR* Warfarin 2.5 MG TABLET PO SCH (18:00)
[2018-12-17] MEDS: VANCOMYCIN IVPB SCH (18:00)
[2018-12-18 05:14] LABS: Basophils % 0.5 %; Eosinophils # 0.2 K/mcL (0.0-0.6); Eosinophils % 3.7 %; Hematocrit 28.1 % (35.3-44.9); Hemoglobin 8.5 g/dL (11.5-15.4); Immature Granulocytes % 0.8 % (0-4); Lymphocytes # 1.9 K/mcL (0.6-4.6); Lymphocytes % 30.8 %; Mean Corpuscular HGB Conc 30.2 g/dL (31.6-35.5); Mean Corpuscular Hemoglobin 25.1 pg (28.0-33.3); Mean Corpuscular Volume 82.9 fL (83.0-100.0); Mean Platelet Volume 9.6 fL (9.4-12.4); Monocytes # 0.9 K/mcL (0.0-1.3); Neutrophils # 3.1 K/mcL (1.6-8.9); Platelet Count 283 K/mcL (140-400); Red Blood Count 3.39 M/mcL (3.82-4.97); Red Cell Distribution Width 16.7 % (11.5-14.5); Segmented Neutrophils % 50.2 %
[2018-12-18 05:26] LABS: INR 2.8; Prothrombin Time 31.1 Seconds (9.4-12.1)
[2018-12-18 05:32] LABS: BUN/Creatinine Ratio 9 (6-26); Blood Urea Nitrogen 4 mg/dL (8-23); Calcium 8.3 mg/dL (8.6-10.3); Carbon Dioxide 23 mEq/L (23-29); Chloride 112 mEq/L (98-107); Glucose 83 mg/dL (70-105); Osmolality,Calculated 290 (280-300); Potassium 3.6 mEq/L (3.5-5.1); Sodium 142 mEq/L (136-145); eGFR For Non-African Americans > 60 (> 60)
[2018-12-18 05:34] LABS: % Iron Saturation 5 % (15-50); Iron 13 mcg/dL (50-170); Transferrin 190 mg/dL (203-362)
[2018-12-18 05:59] LABS: Platelet Estimate Normal (Normal)
[2018-12-18 06:36] VITALS: BP 136/96
[2018-12-18] MEDS: Lactobacillus 1 EACH CAP.SPRINK PO SCH (08:22)
[2018-12-18] MEDS: predniSONE 10 MG TABLET PO SCH (08:22)
--- NOTE | 2018-12-18 09:34 | Infectious Disease Progress No ---
Date of Encounter: 12/18/18 Time of Encounter: 09:32 - Assessment and Plan (1) Septic shock Status: Resolved Resolved. Septic shock on initial presentation, with vitals temperature of 101.5F, HR 118, BP 87/48. WBC 9.8, Lactic acid 3.2. -Etiology flu A and GPC -source likely the flu A and bacteremia -Afebrile, hemodynamically stable -WBC 6.2 -Flu A positive -12/12/2018 Blood cultures from Port demonstrating staphylococcus epidermidis and staphyloco hominis ssp hominis x2 -12/13/2018 blood culture from peripheral NTD x2 -12/13/2018 blood culture port GPC -Serology demonstrating staph aureus -Urinalysis demonstrating leukocyte esterase -Urine culture negative -Chest x-ray demonstrating chronic bilateral perihilar infiltrate -Hip x-ray demonstrating no acute osseous injury Plan: -completed Tamiflu treatment -vancomycin (4 doses q48h) lock for likely contaminant of left-sided port. Patient does not read follow-up in infectious disease office. (2) Bacteremia Status: Acute Bacteremia demonstrated blood cultures -etiology staphylococcus epidermidis and staphyloco hominis ssp hominis -source is left-sided port -12/12/2018 Blood cultures from Port demonstrating staphylococcus epidermidis and staphyloco hominis ssp hominis x2 -12/13/2018 blood culture from peripheral NTD x2 -12/13/2018 blood culture port demonstrating staphylococcus epidermidis and staphyloco hominis ssp hominis x2 Plan: -vancomycin lock for likely contaminant of left-sided port. Patient does not read follow-up in infectious disease office. -will discuss with the patient the option of removing the port and she would like to keep it (3) Influenza A Status: Acute Influenza a positive. Patient was in contact with granddaughter whom was positive for the flu. Patient received Tamiflu in the ED. -patient reports improvement of fever, chills, malaise, body aches plan: -completed treatment of Tamiflu (4) Diarrhea Status: Acute Improved Patient having diarrhea 5-6 loose watery stools for the past 2 days. She believes it is from abx. She denies ever having c.diff. No abdominal pain. She does not think it is getting better. -etiology may be side effect from abx. C.diff ruled out -today patient reports improvement of diarrhea with having less bowel movements. denies abdominal pain -c.diff test negative plan: -continue to monitor Qualifiers: Diarrhea type: presumed infectious Qualified Code(s): R19.7 - Diarrhea, unspecified (5) Lupus anticoagulant disorder Status: Chronic Known lupus anticoagulant taking warfarin and mycophenolate. 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 She follows with her dry can tender at [place], Dr. Ware. (7) Diabetes mellitus Status: Chronic history of diabetes. -primary team to manage Qualifiers: Diabetes mellitus type: type 2 Diabetes mellitus assistant terminal manager insulin use: without assistant terminal manager use Diabetes mellitus complication status: without complication Qualified Code(s): E11.9 - Type 2 diabetes mellitus without complications (8) Immunosuppression Status: Acute Patient is currently immunosuppressed secondary to medication for lupus anticoagulant. She takes mycophenolate. -Afebrile -Patient is currently not receiving mycophenolate. - Subjective Interval history: Patient seen and examined at bedside. She is resting comfortably in no acute distress. She is asking when she can go home today because her with early dementia is at home and needs her. She has no complaints. She denies body aches, fever, chills, headache, abdominal pain, shortness of breath, cough. Infect Dis PN-Objective Data - Labs CBC & Chem 7: 12/18/18 04:42 12/18/18 04:42 Labs: Laboratory Results - last 24 hr 12/17/18 12/17/18 12/17/18 10:53 15:48 21:04 WBC RBC Hgb Hct MCV MCH MCHC RDW Plt Count MPV Immature Gran % Seg Neutrophils % Lymphocytes % Monocytes % Eosinophils % Basophils % Neutrophils # Lymphocytes # Monocytes # Eosinophils # Basophils # Platelet Estimate PT INR Sodium Potassium Chloride Carbon Dioxide BUN Creatinine Est GFR ( Amer) Est GFR (Non-Af Amer) BUN/Creatinine Ratio Glucose POC Glucose 129 H 109 H 87 Calculated Osmolality Calcium Iron % Saturation Transferrin 12/18/18 12/18/18 12/18/18 04:42 04:42 04:42 WBC 6.2 RBC 3.39 L Hgb 8.5 L Hct 28.1 L MCV 82.9 L MCH 25.1 L MCHC 30.2 L RDW 16.7 H Plt Count 283 MPV 9.6 Immature Gran % 0.8 Seg Neutrophils % 50.2 Lymphocytes % 30.8 Monocytes % 14.0 Eosinophils % 3.7 Basophils % 0.5 Neutrophils # 3.1 Lymphocytes # 1.9 Monocytes # 0.9 Eosinophils # 0.2 Basophils # 0.0 Platelet Estimate Normal PT 31.1 H INR 2.8 Sodium 142 Potassium 3.6 Chloride 112 H Carbon Dioxide 23 BUN 4 L Creatinine 0.45 L Est GFR ( Amer) > 60 Est GFR (Non-Af Amer) > 60 BUN/Creatinine Ratio 9 Glucose 83 POC Glucose Calculated Osmolality 290 Calcium 8.3 L Iron % Saturation Transferrin 12/18/18 04:42 WBC RBC Hgb Hct MCV MCH MCHC RDW Plt Count MPV Immature Gran % Seg Neutrophils % Lymphocytes % Monocytes % Eosinophils % Basophils % Neutrophils # Lymphocytes # Monocytes # Eosinophils # Basophils # Platelet Estimate PT INR Sodium Potassium Chloride Carbon Dioxide BUN Creatinine Est GFR ( Amer) Est GFR (Non-Af Amer) BUN/Creatinine Ratio Glucose POC Glucose Calculated Osmolality Calcium Iron 13 L % Saturation 5 L Transferrin 190 L Cultures: Cultures 12/13/18 10:49 Blood Culture - Preliminary Port System Staphylococcus epidermidis Staphylococcus hominis 12/12/18 08:29 Blood Culture - Preliminary Port System Staphylococcus epidermidis Staphyloco hominis ssp hominis 12/12/18 08:39 Blood Culture - Preliminary Port System Staphylococcus epidermidis Staphyloco hominis ssp hominis 12/12/18 14:21 Urine Culture - Final Urine,Clean Catch No significant growth. 12/13/18 10:39 Blood Culture - Preliminary Peripheral Venipuncture Culture is incubating and being continuously monitored for growth. Final report to follow. 12/13/18 10:39 Blood Culture - Preliminary Peripheral Venipuncture Culture is incubating and being continuously monitored for growth. Final report to follow. 12/12/18 11:38 Influenza Types A,B Antigen - Final Nasopharyngeal Serology 12/16/18 12/16/18 12/12/18 Range/Units 08:10 08:10 14:21 Urine Color Yellow (Yellow) Urine Clarity Clear (Clear) Urine pH 6.0 (5.0-8.0) pH Units Ur Specific [place] 1.011 (1.010-1.025) Urine Protein Negative (Neg-Trace) mg/dL Urine Glucose (UA) Normal (Normal) mg/dL Urine Ketones Negative (Negative) mg/dL Urine Blood Negative (Negative) Urine Nitrite Negative (Negative) Urine Bilirubin Negative (Negative) Urine Urobilinogen Normal (Normal) mg/dL Ur Leukocyte Esterase Small H (Negative) Urine Microscopic RBC 0-3 (0-3) per hpf Urine Microscopic WBC 0-3 (0-3) per hpf Ur Squamous Epith Cells Few (None-Few) per lpf Urine Bacteria None Seen (None-Few) per hpf Hyaline Casts None Seen (None-Few) per lpf Ur Culture Indicated? YES A (NO) Stool Occult Blood Negative (Negative) Stl C. diff Tox B Gene Negative (Negative) A. baumannii (PCR) (Not Detect) Meghan albicans (PCR) (Not Detect) C. glabrata (PCR) (Not Detect) C. krusei (PCR) (Not Detect) C. parapsilosis (PCR) (Not Detect) C. tropicalis (PCR) (Not Detect) Enterobacteriac sp PCR (Not Detect) E. cloacae complex PCR (Not Detect) Enterococcus sp PCR (Not Detect) E. coli (PCR) (Not Detect) H. influenzae (PCR) (Not Detect) Klebsiella oxytoca PCR (Not Detect) Klebsiella pneumoniae (Not Detect) List. monocytogenes PCR (Not Detect) N. meningitidis (PCR) (Not Detect) Proteus species (PCR) (Not Detect) Serratia marcescens PCR (Not Detect) Staphylococcus sp PCR (Not Detect) Staph aureus (PCR) (Not Detect) mecA-Methicil Res Gene (Not Detect) Streptococcus sp PCR (Not Detect) Group A Strep DNA (Not Detect) Group B Strep (PCR) (Not Detect) Strep pneumoniae (PCR) (Not Detect) P. aeruginosa (PCR) (Not Detect) Paco/B-Vanco Res Genes (Not Detect) KPC (blaKPC) Detect PCR (Not Detect) 12/12/18 Range/Units 08:29 Urine Color (Yellow) Urine Clarity (Clear) Urine pH (5.0-8.0) pH Units Ur Specific [place] (1.010-1.025) Urine Protein (Neg-Trace) mg/dL Urine Glucose (UA) (Normal) mg/dL Urine Ketones (Negative) mg/dL Urine Blood (Negative) Urine Nitrite (Negative) Urine Bilirubin (Negative) Urine Urobilinogen (Normal) mg/dL Ur Leukocyte Esterase (Negative) Urine Microscopic RBC (0-3) per hpf Urine Microscopic WBC (0-3) per hpf Ur Squamous Epith Cells (None-Few) per lpf Urine Bacteria (None-Few) per hpf Hyaline Casts (None-Few) per lpf Ur Culture Indicated? (NO) Stool Occult Blood (Negative) Stl C. diff Tox B Gene (Negative) A. baumannii (PCR) Not Detected (Not Detect) Meghan albicans (PCR) Not Detected (Not Detect) C. glabrata (PCR) Not Detected (Not Detect) C. krusei (PCR) Not Detected (Not Detect) C. parapsilosis (PCR) Not Detected (Not Detect) C. tropicalis (PCR) Not Detected (Not Detect) Enterobacteriac sp PCR Not Detected (Not Detect) E. cloacae complex PCR Not Detected (Not Detect) Enterococcus sp PCR Not Detected (Not Detect) E. coli (PCR) Not Detected (Not Detect) H. influenzae (PCR) Not Detected (Not Detect) Klebsiella oxytoca PCR Not Detected (Not Detect) Klebsiella pneumoniae Not Detected (Not Detect) List. monocytogenes PCR Not Detected (Not Detect) N. meningitidis (PCR) Not Detected (Not Detect) Proteus species (PCR) Not Detected (Not Detect) Serratia marcescens PCR Not Detected (Not Detect) Staphylococcus sp PCR DETECTED A (Not Detect) Staph aureus (PCR) Not Detected (Not Detect) mecA-Methicil Res Gene Not Detected (Not Detect) Streptococcus sp PCR Not Detected (Not Detect) Group A Strep DNA Not Detected (Not Detect) Group B Strep (PCR) Not Detected (Not Detect) Strep pneumoniae (PCR) Not Detected (Not Detect) P. aeruginosa (PCR) Not Detected (Not Detect) Paco/B-Vanco Res Genes N/A (Not Detect) KPC (blaKPC) Detect PCR N/A (Not Detect) Exam - Constitutional Vitals: Temp Pulse Resp BP Pulse Ox 98.3 F 94 18 136/96 94 12/18/18 06:32 12/18/18 06:32 12/18/18 06:32 12/18/18 06:32 12/18/18 06:32 Exam: Gen.: Vitals noted. No acute distress. AAOx3 HEENT: oropharynx clear, Normocephalic, atraumatic Neck: Supple. No adenopathy. Cardiac: RRR, no murmur, +S1/S2 Pulmonary: CTA bilaterally no wheezing, rales or rhonchi, equal chest expansion Abdomen: soft, nontender, Bowel sounds noted, no guarding skin: left-sided port, non-erythematous Extremities: no BLE edema, nontender calf, no cyanosis or clubbing Neuro: A&Ox3, moves all extremities Psych: Appropriate mood and behavior Consult Discharge Plan - Plan Instructions: Implanted Venous Access Port (DC), Implanted Venous Access Port (GEN), How to Care for Your Implanted Venous Access Port (DC), How to Care for Your Implanted Venous Access Port (GEN) Referrals: Berta Cotto MD [Primary Care Provider] - (The office of Dr. Cotto does not use web request . [facility] will need to call for a hospital follow up ) Prescriptions: RX: Ferrous Sulfate 325 mg PO DAILY@0800 30 Days #30 tablet RX: Vancomycin [Vancocin] 500 each IVP Q48H #4 vial - Attending Attestation I examined this patient and my medical decision-making was reviewed with the Resident Physician. I agree with the documented findings, disposition and treatment plan as described except to the extent set forth below. I examined this patient and my medical decision-making was reviewed with the Resident Physician. I agree with the documented findings, disposition and treatment plan as described except to the extent set forth below. Patient seen and examined clinically doing well. Symptoms resolved. No cough no chest pain or shortness of breath. Chest port intact with no signs of inf ection. Patient adamant to go home with the port. I did talk to her in the presence of nursing staff. We said we will try to salvage it by doing vancomycin locks for 7 days. Discussed with pharmacy staff they will set up the procedure. Patient instructed to call us if he starts having fevers chills or symptoms of port infection.
--- NOTE | 2018-12-18 12:01 | Discharge Summary ---
- NOTES TO OUTPATIENT PROVIDER Notes to Outpatient Provider: 1. Anemia workup shows iron deficiency anemia. Iron pill started. Please follow-up iron level as outpatient. Orders not resulted at time of discharge: Pending orders 12/12/18 08:29 Culture,Blood [BC] Stat 12/13/18 04:00 Culture,Sputum with Gram Stain [RM] AM 0400 12/13/18 10:39 Culture,Blood [BC] Routine 12/13/18 10:49 Culture,Blood [BC] Routine 12/19/18 04:00 BMP [Basic Metabolic Panel] AM 0400 CBC [Complete Blood Count] [HEME] AM 0400 PT/INR [Prothrombin Time INR] [COAG] AM 0400 12/20/18 04:00 BMP [Basic Metabolic Panel] AM 0400 CBC [Complete Blood Count] [HEME] AM 0400 12/21/18 04:00 BMP [Basic Metabolic Panel] AM 0400 CBC [Complete Blood Count] [HEME] AM 0400 12/22/18 04:00 BMP [Basic Metabolic Panel] AM 0400 CBC [Complete Blood Count] [HEME] AM 0400 12/23/18 04:00 BMP [Basic Metabolic Panel] AM 0400 CBC [Complete Blood Count] [HEME] AM 0400 12/24/18 04:00 BMP [Basic Metabolic Panel] AM 0400 CBC [Complete Blood Count] [HEME] AM 0400 Date of Encounter: 12/18/18 Time of Encounter: 11:00 - Discharge Diagnosis (1) Anemia Priority: Secondary Status: Chronic Assessment and Plan: Stable. Hemoglobin 8 today. Stool negative for occult blood. We will continue to monitor hemoglobin levels. Check iron profile, B12 and folic acid levels - Iron study shows iron deficiency, iron supplement started. Qualifiers: Anemia type: unspecified type Qualified Code(s): D64.9 - Anemia, unspecified (2) Septic shock Priority: Primary Status: Resolved (3) Influenza A Priority: Primary Status: Acute (4) CHF (congestive heart failure) Priority: Secondary Status: Chronic Qualifiers: Heart failure type: unspecified Heart failure chronicity: chronic Qualified Code(s): I50.9 - Heart failure, unspecified (5) Lupus anticoagulant disorder Priority: Secondary Status: Chronic (6) Diabetes mellitus Priority: Secondary Status: Chronic Qualifiers: Diabetes mellitus type: type 2 Diabetes mellitus usp insulin use: without usp use Diabetes mellitus complication status: without complication Qualified Code(s): E11.9 - Type 2 diabetes mellitus without complications (7) BOOP (bronchiolitis obliterans with organizing pneumonia) Priority: Secondary Status: Chronic (8) DVT prophylaxis Priority: Secondary Status: Acute (9) Diarrhea Priority: Secondary Status: Acute Qualifiers: Diarrhea type: presumed infectious Qualified Code(s): R19.7 - Diarrhea, unspecified (10) Acute respiratory failure with hypoxia Priority: Primary Status: Acute (11) Chronic steroid use Priority: Primary Status: Acute Hospital course: Ms. Ziegler is a 68 year old female present to ER for fever and hypotension. Patient was suspected septic shock and admitted to ICU. Patient has BOOP on chronic prednisone. Patient was given stress dose hydrocortisone. Further tests shows influenza A positive. Patient was treated with Tamiflu. CT chest ruled out pneumonia. Patient has positive blood culture, ID consult saw patient, recommended removing port but patient refused. The culture result most likely due to contamination per ID. However, will give patient vancomycin port lock. I have seen and examined the patient today. No fever. No shortness of breath. Vitals are stable. SPO2 94% on 2 L nasal cannula oxygen, which was at her baseline. Patient has finished 5 days Tamiflu treatment. Will DC home with home health to perform Vanco lock for patient. Discharge discussed with: patient - Time Spent with Patient Total time spent providing and/or coordinating discharge services: 40 minutes Time spent: Greater than 30 minutes, D/C greater than 8 hours after Admission - Discharge Medications Prescriptions: New Vancomycin [Vancocin] 500 each IVP Q48H #4 vial Ferrous Sulfate 325 mg PO DAILY@0800 30 Days #30 tablet Continue Alendronate Sodium [Fosamax] 70 mg PO SA Carvedilol 12.5 mg PO BID Furosemide [Lasix] 40 mg PO BID Gabapentin 600 mg PO HS Omeprazole [PriLOSEC] 40 mg PO BID Potassium Chloride [K-Tab ER] 20 meq PO HS predniSONE [PredniSONE] 10 mg PO DAILY Spironolactone [Aldactone] 100 mg PO DAILY Warfarin [Coumadin] 2.5 mg PO QPM Benzonatate [Tessalon] 100 mg PO HS Calcium Carbonate/Vitamin D3 [Calcium 600 + Vit D Tablet] 1 tab PO DAILY Fexofenadine/Pseudoephedrine [Radha-D 12 Hour Tablet] 180 mg PO DAILY metFORMIN [Glucophage] 500 mg PO BIDWM Multivit-Min/FA/Lycopen/Lutein [Centrum Silver Tablet] 1 tab PO DAILY Mycophenolate Mofetil [Cellcept] 500 mg PO BID Ondansetron HCl [Zofran] 4 mg PO Q8H PRN PRN Reason: Nausea And Vomiting Vitamin E 400 unit PO DAILY No Action Gabapentin [Neurontin] 100 mg PO DAILY Home Medications: Alendronate Sodium [Fosamax] 70 mg PO SA 12/12/18 [History] Benzonatate [Tessalon] 100 mg PO HS 12/12/18 [History] Calcium Carbonate/Vitamin D3 [Calcium 600 + Vit D Tablet] 1 tab PO DAILY 12/12/18 [History] Carvedilol 12.5 mg PO BID 12/12/18 [History] Fexofenadine/Pseudoephedrine [Radha-D 12 Hour Tablet] 180 mg PO DAILY 12/12/18 [History] Furosemide [Lasix] 40 mg PO BID 12/12/18 [History] Gabapentin 600 mg PO HS 12/12/18 [History] Gabapentin [Neurontin] 100 mg PO DAILY 12/12/18 [History] Multivit-Min/FA/Lycopen/Lutein [Centrum Silver Tablet] 1 tab PO DAILY 12/12/18 [History] Mycophenolate Mofetil [Cellcept] 500 mg PO BID 12/12/18 [History] Omeprazole [PriLOSEC] 40 mg PO BID 12/12/18 [History] Ondansetron HCl [Zofran] 4 mg PO Q8H PRN 12/12/18 [History] Potassium Chloride [K-Tab ER] 20 meq PO HS 12/12/18 [History] Spironolactone [Aldactone] 100 mg PO DAILY 12/12/18 [History] Vitamin E 400 unit PO DAILY 12/12/18 [History] Warfarin [Coumadin] 2.5 mg PO QPM 12/12/18 [History] metFORMIN [Glucophage] 500 mg PO BIDWM 12/12/18 [History] predniSONE [PredniSONE] 10 mg PO DAILY 12/12/18 [History] Vancomycin [Vancocin] 500 each IVP Q48H #4 vial 12/17/18 [Rx] Ferrous Sulfate 325 mg PO DAILY@0800 30 Days #30 tablet 12/18/18 [Rx] Allergies/Adverse Reactions: Allergy/AdvReac Type Severity Reaction Status Date / Time No Known Allergies Allergy Verified 12/12/18 07:49 Date of admission: 12/12/18 18:16 Primary care physician: Berta Cotto MD Consults: 12/14/18 10:47 Consult to Infectious Diseases [CONS] Routine Consulting Provider: Infectious Disease [employer] Reason for Consult: Positive port culture w/o periph cultures at ED, ABX then given, repeat central and peripheral at ICU. Time Notified: 10:49 Call Completed: No 12/15/18 09:05 Consult to Nurse Navigator [CONS] Routine Comment: CHF 12/16/18 15:17 Consult to Physical Therapy [CONS] Routine Comment: Evaluate, develop and implement POC Reason for Consult: assess home needs Does patient have active BEDREST order?: No Is patient medically & hemodynamically stable?: Yes Patient assessed for mobility or mobilized this visit?: Yes 12/16/18 15:19 Consult to Occupational Therapy [CONS] Routine Comment: Evaluate, develop and implement POC Reason for Consult: discharge needs, falls at home Does patient have active BEDREST order?: No Is patient medically & hemodynamically stable?: Yes Discharging clinician: Travis Fields Anticipated date of discharge: 12/18/18 - Constitutional Vitals: Temp Pulse Resp BP Pulse Ox 98.3 F 94 18 136/96 94 12/18/18 06:32 12/18/18 06:32 12/18/18 06:32 12/18/18 06:32 12/18/18 06:32 Exam: General: Patient is alert, no acute distress, oriented x 3 ENT: Mucous membranes moist Respiratory: Bilateral coarse breath sound. Scattered wheezing (due to BOOP, pt said it is normal for her). Right-sided port catheter in place Cardiovascular: Regular rate and rhythm. s1 and s2 normal No clicks, rubs, gallops, or murmurs. No pedal edema Abdomen: Abdomen is soft, nontender. Bowel sounds are present Musculoskeletal: Spontaneously moving all extremities Skin: warm, dry, intact. Neuro: Alert oriented x 3 normal cranial nerves, no focal deficits - Patient Status Disposition: Home Health Service Condition: Fair Functional capacity at discharge: uses cane/walker Overall status at discharge: patient is back to baseline - Discharge Instructions Follow Up With: Berta Cotto MD [Primary Care Provider] - (The office of Dr. Cotto does not use web request . F[facility]ia will need to call for a hospital follow up ) - Diet and Activity Diet: diabetic diet, low fat, low cholesterol, low salt diet
--- NOTE | 2018-12-18 12:13 | Physician Discharge Referral ---
Home Health/Hosp Referral Info Transfer to: Home Health Provider in Charge Post Discharge: PCP - Diagnosis (1) Anemia Status: Chronic (2) Septic shock Status: Resolved (3) Influenza A Status: Acute (4) CHF (congestive heart failure) Status: Chronic (5) Lupus anticoagulant disorder Status: Chronic (6) Diabetes mellitus Status: Chronic (7) BOOP (bronchiolitis obliterans with organizing pneumonia) Status: Chronic (8) DVT prophylaxis Status: Acute (9) Diarrhea Status: Acute (10) Acute respiratory failure with hypoxia Status: Acute (11) Chronic steroid use Status: Acute - Respiratory Orders Oxygen / L per min (2) Smoking Cessation: Smoking cessation has been advised. For more information, call the [employer] Tobacco Quit Line at 7-385-CIMX-NOW. - Services Needed Following services are medically necessary services: Nursing, Home Health Aide, Physical Therapy, Occupational Therapy, Home Infusion - Transfer Medications Prescriptions: Ferrous Sulfate 325 mg PO DAILY@0800 30 Days #30 tablet Vancomycin [Vancocin] 500 each IVP Q48H #4 vial Home Medications: Alendronate Sodium [Fosamax] 70 mg PO SA 12/12/18 [History] Benzonatate [Tessalon] 100 mg PO HS 12/12/18 [History] Calcium Carbonate/Vitamin D3 [Calcium 600 + Vit D Tablet] 1 tab PO DAILY 12/12/18 [History] Carvedilol 12.5 mg PO BID 12/12/18 [History] Fexofenadine/Pseudoephedrine [Radha-D 12 Hour Tablet] 180 mg PO DAILY 12/12/18 [History] Furosemide [Lasix] 40 mg PO BID 12/12/18 [History] Gabapentin 600 mg PO HS 12/12/18 [History] Gabapentin [Neurontin] 100 mg PO DAILY 12/12/18 [History] Multivit-Min/FA/Lycopen/Lutein [Centrum Silver Tablet] 1 tab PO DAILY 12/12/18 [History] Mycophenolate Mofetil [Cellcept] 500 mg PO BID 12/12/18 [History] Omeprazole [PriLOSEC] 40 mg PO BID 12/12/18 [History] Ondansetron HCl [Zofran] 4 mg PO Q8H PRN 12/12/18 [History] Potassium Chloride [K-Tab ER] 20 meq PO HS 12/12/18 [History] Spironolactone [Aldactone] 100 mg PO DAILY 12/12/18 [History] Vitamin E 400 unit PO DAILY 12/12/18 [History] Warfarin [Coumadin] 2.5 mg PO QPM 12/12/18 [History] metFORMIN [Glucophage] 500 mg PO BIDWM 12/12/18 [History] predniSONE [PredniSONE] 10 mg PO DAILY 12/12/18 [History] Vancomycin [Vancocin] 500 each IVP Q48H #4 vial 12/17/18 [Rx] Ferrous Sulfate 325 mg PO DAILY@0800 30 Days #30 tablet 12/18/18 [Rx] Allergies/Adverse Reactions: Allergy/AdvReac Type Severity Reaction Status Date / Time No Known Allergies Allergy Verified 12/12/18 07:49 Certification: Further, I certify that my clinical findings support that this patient is homebound (i.e. absences from home require considerable and taxing effort and are for medical reasons or anabaptist services or infrequently or short duration when for other reasons) because: Homebound Reason: Patient requires assistance of a person or device to safely leave home Attestation: My signature below is to certify that this patient is under my care and that I, or nurse practitioner, or a physician's orthopedic physician assistant working with me, has a fa ce-to-face encounter with this patient.
[2018-12-18] MEDS ORDERED: [UNRECOGNIZED DRUG - OTHER] IVPB SCH (15:45)
[2018-12-18] MEDS ORDERED: VANCOMYCIN IVPB SCH (15:45)
[2018-12-18] MEDS ORDERED: HEPARIN IVPB SCH (15:45)
[2018-12-18] MEDS ORDERED: SODIUM CHLORIDE IVPB SCH (15:45)
[2018-12-18] MEDS: VANCOMYCIN IVPB SCH (17:07)
[2018-12-18] MEDS: HEPARIN IVPB SCH (17:07)
[2018-12-18] MEDS ORDERED: *HR* Warfarin 2 MG TABLET PO ONE (18:00)
[2018-12-19] MEDS ORDERED: *HR* Warfarin 2.5 MG TABLET PO SCH (18:00)
== END 2018-12-18 18:12 | disposition home health service (06) | DRG 871 ==
LOC: EMEROOARM 07:41 → ICNU 07:41 → SUATTDRO 18:16 → 2NENU 12-15 12:33
PROVIDERS: ADMIT Internal Medicine Pulmonary Disease; ATTEND Internal Medicine